=== PATIENT | female | born 1985 | race Caucasian/White ===

== ENCOUNTER 2023-10-28 10:05 | Emergency (ER) | payer OTHER, SELFPAY ==
--- NOTE | 2023-10-28 | ECG_ITS ---
Test Reason : PALPITATIONS / NAUSEA/VOMITTING Blood Pressure : / mmHG Vent. Rate : 072 BPM Atrial Rate : 072 BPM P-R Int : 132 ms QRS Dur : 080 ms QT Int : 474 ms P-R-T Axes : 078 083 056 degrees QTc Int : 519 ms Normal sinus rhythm with sinus arrhythmia Nonspecific ST abnormality Prolonged QT Abnormal ECG No previous ECGs available Referred By: Dejuan Osorio Electronically Signed By:Shankar Tinsley
--- NOTE | 2023-10-28 | ECG_ITS ---
Test Reason : QT CHECK Blood Pressure : / mmHG Vent. Rate : 066 BPM Atrial Rate : 066 BPM P-R Int : 142 ms QRS Dur : 078 ms QT Int : 410 ms P-R-T Axes : 071 075 028 degrees QTc Int : 429 ms Normal sinus rhythm Nonspecific ST-T changes Abnormal ECG When compared with ECG of 28-OCT-2023 16:29, No significant change was found Referred By: Dejuan Osorio Electronically Signed By:Shankar Tinsley
[2023-10-28 10:20] VITALS: BP 139/88; PULSE 87; RESP 20; TEMP 37.2; O2SAT 100; BMI 25.0
--- NOTE | 2023-10-28 10:35 | ED.NAVMDI ---
HPI - Nausea/Vomiting/Diarrhea General Chief complaint: Nausea/Vomiting/Diarrhea Stated complaint: Vomiting Time Seen by Provider: 10/28/23 10:31 Source: patient Mode of arrival: ambulatory Limitations: no limitations History of Present Illness HPI Narrative: Patient is a 37-year-old female who presents emergency department for evaluation of 3 days of nausea and vomiting. She admits to a history of cyclical vomiting that responds typically to IV Zofran. She denies fevers, chills, abdominal pain, chest pain, shortness of breath, genitourinary symptoms, constipation, diarrhea. She states that she has not smoked marijuana approximately 1 week. She is unable to tolerate any oral intake. Last night she began developing heart palpitations, she states in the past she has had low potassium with episodes of vomiting that requires replacement and typically resolves her palpitations Related Data Previous Rx's ?Medication ?Instructions ?Recorded ondansetron 4 mg disintegrating 4 mg PO Q8H PRN nausea and 10/28/23 tablet vomiting #20 tabs Allergies Allergy/AdvReac Type Severity Reaction Status Date / Time No Known Allergies Allergy Verified 10/28/23 10:24 Review of Systems Review of Systems: Yes all other systems are reviewed and are negative PMFSH Past Medical History Attestation statement: The following information was validated with the patient. Source: old records reviewed Social History Social History Alcohol intake: never Smoked in Last 30 Days: Yes Use of substances other than those prescribed or required for medical reasons: No Advance Directives: No Advance Directives Information Provided: Yes Do you have a plan to hurt others: No Plan Physical Exam Vital Signs: Vital Signs: Last Vital Signs Temp 98.9 F 10/28/23 10:20 Pulse 69 10/28/23 13:34 Resp 14 10/28/23 18:33 BP 114/67 10/28/23 13:34 Pulse Ox 98 10/28/23 13:34 O2 Del Method Room Air 10/28/23 13:34 BMI result Body Mass Index 25.0 Appearance: Alert.?Oriented to person, place and time. No acute distress.?Normal affect. Eyes: Pupils equal, round and reactive to light.? ENT: Pharynx normal.?? Neck: Normal inspection.? Neck supple.?? CVS: Heart sounds normal. Normal heart rate and rhythm.? Pulses normal.?? Respiratory: No respiratory distress.? Lung sounds clear to auscultation bilaterally?? Abdomen: Soft and non-tender. Normoactive bowel sounds. Skin: Skin warm and dry.? Normal skin color.? Extremities: No lower extremity edema.? No calf ttp? Neuro: Moves all extremities spontaneously. Sensation intact bilaterally. Ambulates with normal steady gait. Course Reevaluation(s) Reevaluation #1: Nursing staff had difficult time obtaining IV access, once PRN angio was placed they were unable to obtain serum labs. She was amenable to receiving medication IV fluids. Phlebotomy was called for assistance with serum labs which she has since refused. Time: 12:00 Reevaluation #2: Nursing staff was able to get patient to allow labs to be drawn. Received call from lab for critical potassium of 2.8, patient received potassium chloride 20 mEq IV, 40 mEq p.o. Time: 13:48 Reevaluation #3: Patient signed out to my colleague Lenoel GREENBERG pending repeat serum potassium and repeat EKG to evaluate QTC. Nausea and vomiting had resolved after receiving IV lorazepam and fluids. Anticipate that she may be discharged home a potassium an EKG normalizes. Additional Reevaluation(s): Patient's repeat EKG shows a QTC of 429. The patient is not actively vomiting but still reports nausea. She is requesting additional medication. She is unwilling to attempt haloperidol for cyclic vomiting. She is requesting Ativan. I will give her 1 additional dose of Ativan Medications Administered Discontinued Medications Generic Name Dose Route Start Last Admin Trade Name Freq PRN Reason Stop Dose Admin Sodium Chloride 1,000 mls @ 999 mls/hr 10/28/23 11:00 10/28/23 12:40 Ns IV 10/28/23 12:00 Infused .Q1H1M KARINA Infusion Magnesium Sulfate 2 gm in 50 mls @ 25 mls/hr 10/28/23 10:48 10/28/23 13:56 Magnesium Sulfate/H2o IV 10/28/23 12:47 Infused ONCE ONE Infusion Potassium Chloride 10 meq in 100 mls @ 100 mls/hr 10/28/23 13:45 10/28/23 16:20 Potassium Chloride/H20 IV 10/28/23 15:44 Infused Q1H KARINA Infusion Sodium Chloride 1,000 mls @ 999 mls/hr 10/28/23 13:45 10/28/23 15:30 Ns IV 10/28/23 14:45 Infused .Q1H1M KARINA Infusion Lorazepam 1 mg 10/28/23 13:45 10/28/23 14:10 Lorazepam 2 Mg/Ml Vial IVPUSH 10/28/23 13:46 1 mg ONCE ONE Administration Lorazepam 1 mg 10/28/23 20:35 10/28/23 20:50 Lorazepam 2 Mg/Ml Vial IVPUSH 10/28/23 20:36 1 mg STAT STA Administration Ondansetron HCl 4 mg 10/28/23 10:48 10/28/23 11:56 Ondansetron Hcl 4 Mg/2 Ml Vial IVPUSH 10/28/23 10:49 4 mg ONCE ONE Administration Potassium Chloride 40 meq 10/28/23 13:45 10/28/23 14:10 Potassium Chloride Packet 20 Meq Packet PO 10/28/23 13:46 40 meq ONCE ONE Administration Medical Decision Making Medical Decision Making [facility] Narrative: Patient is a 37-year-old female with past medical history of cyclical dominant who presents to the emergency department for evaluation of 3 days' nausea and vomiting, admits that she is not smoke marijuana over the past week. She denies associated fevers, chills, chest pain, shortness of breath, URI symptoms, abdominal pain, urogenital symptoms, back pain. Denies any known sick contacts. She reports that Zofran is typically helpful for this. On review, EKG reveals a sinus rhythm with arrhythmia, ventricular rate of 72, prolonged QT 519 MS, T-wave inversion inferior leads. no prior available for review. Will obtain CBC to evaluate for leukocytosis/ anemia, CMP and lipase to evaluate for abnormal electrolytes /abnormal renal function/ abnormal hepatic/biliary function, hCG and Urinalysis. Patient received 1 L normal saline IV fluid, magnesium 2 g V with Zofran 4 mg IV given prolonged QTc Differential Diagnosis Differential Diagnoses: The differential diagnosis associated with the presentation includes (Gastroenteritis, cyclic vomiting, , prolonged QT) Admission/Observation Consideration of admission/observation: Escalation of care including admission/observation considered Lab Data [facility] Lab Attestation statement: I reviewed the patient's lab results. 10/28/23 13:05 10/28/23 18:02 Labs: Lab Results 10/28/23 10/28/23 10/28/23 Range/Units 13:05 13:05 18:02 WBC 12.8 H (4.8-10.8) X10*3/uL RBC 5.58 H (4.20-5.50) X10*6/uL Hgb 16.0 (12.0-16.0) g/dl Hct 47.2 H (37.0-47.0) % MCV 84.6 (80.0-98.0) fL MCH 28.7 (27.0-33.0) pg MCHC 33.9 (31.0-35.0) g/dl RDW 11.7 (11.0-16.0) % Plt Count 215 (160-400) X10*3/uL MPV 11.1 (9.4-12.3) fL Immature Gran % (Auto) 0.4 (0.0-0.4) % Neut % (Auto) 83.0 H (45-73) % Lymph % (Auto) 10.9 L (20-40) % [place] % (Auto) 5.5 (2-11) % Eos % (Auto) 0.0 (0-4) % Baso % (Auto) 0.2 (0-2) % Lymph # (Auto) 1.4 (1.2-4.9) X10*3/uL [place] # (Auto) 0.7 (0.1-1.2) X10*3/uL Eos # (Auto) 0.0 (0.0-0.4) X10*3/uL Baso # (Auto) 0.0 (0.0-0.2) X10*3/uL Abs Immat Gran (auto) 0.05 H (0.00-0.03) X10*3/uL Absolute Neuts (auto) 10.6 H (2.0-8.3) x10*3/uL Absolute Nucleated RBC 0.000 (0.0-0.012) X10*3/uL Nucleated RBC % (auto) 0.0 (0.0-0.2) /100WBC Sodium 139 (135-145) mmol/L Potassium 2.8 L* 4.0 D (3.3-5.1) mmol/L Chloride 98 (96-108) mmol/L Carbon Dioxide 25 (22-29) mmol/L Anion Gap 19 (12-20) BUN 9 (9-16) mg/dL Creatinine 0.89 (0.5-1.4) mg/dL Estim Creat Clear Calc 77.9 Estimated GFR > 60 Random Glucose 109 (60-115) mg/dL Calcium 10.6 H (8.4-10.2) mg/dL Magnesium 2.9 H Cancelled (1.6-2.6) mg/dL Total Bilirubin 1.1 H (0.0-1.0) mg/dL AST 23 (5-31) U/L ALT 17 (0-31) U/L Alkaline Phosphatase 52 (39-117) U/L Troponin I High Sens < 2.7 (<3.5-17.0) ng/L Total Protein 9.2 H (6.5-8.0) g/dL Albumin 5.5 H (3.5-5.0) g/dL Lipase 22 (8-78) U/L Beta HCG, Quant < 2 mIU/mL Ethyl Alcohol < 10 mg/dL Independent Historian Clinical information obtained from an independent historian. History obtained from or confirmed by: Spouse Critical Care Time Critical Care Time Critical Care Time: Yes Total Critical Care Time: 35 Attestation: I personally attest to this critical care time spent taking care of the patient exclusive of all other billable procedures was approximately 35 minutes including initial evaluation of patient, ordering tests, IV potassium for acute hypokalemia, EKG interpretation, medical consultation, documentation, re-evaluation. Discharge Plan Discharge Clinical Impression: Cyclical vomiting, Acute hypokalemia, Prolonged QT interval Patient Disposition: Home, Self-Care Instructions: Acute Nausea and Vomiting (ED) Additional Instructions: Take Zofran as needed for nausea/vomiting. Avoid marijuana consumption in the future. Your potassium was initially low but was repleted. You should follow-up your doctor next week for repeat labs Prescriptions: New ondansetron 4 mg tablet,disintegrating 4 mg PO Q8H PRN (Reason: nausea and vomiting) Qty: 20 0RF Print Language: Surinamese
[2023-10-28] MEDS: 0.9 % Sodium Chloride 1,000 ML 999 ML IV ×2 (11:36→14:10)
[2023-10-28] MEDS: Magnesium Sulfate/H2O 2 GM/50 ML PIGGYBACK IV (11:56)
[2023-10-28] MEDS: ondansetron HCL 4 MG/2 ML VIAL IVPUSH (11:56)
--- NOTE | 2023-10-28 11:57 | PC.NURSE ---
PIV #20 IN R FOOT, PATENT WITH NO BLOOD RETURN, UNABLE TO OBTAIN LABS. IVF RUNNING, MEDICATED PER EMR. PLACED ON BIOMEDICAL REPAIR TECHNICIAN, NSR.
--- NOTE | 2023-10-28 12:02 | PC.NURSE ---
this nurse took over care for patient from yonas at 11am, pt a&o, panel monitor intact, pt difficult stick and previously has had US guided IVs placed-provider aware, evans Lee is US trained and was able to obtain access in the pts rt foot US guided. Unable to obtain labs from this site, phlebotomy was called to attempt labs. pt was medicated by evans wilcox and IVF hung per order, pt aware she needs a UA as does the tech, will continue to monitor
--- NOTE | 2023-10-28 12:09 | PC.NURSE ---
phlebotomy came to the floor to attempt lab draw and pt refusing to allow them to draw, provider was notified of this.
--- NOTE | 2023-10-28 13:03 | PC.NURSE ---
pt & ox3, still complaining of nausea, denies pain, will notify provider, call puentes within reach, will continue to monitor
[2023-10-28 13:10] LABS: MANUAL DIFF FLAG NO
[2023-10-28 13:16] LABS: Basophils Percent Auto 0.2 % (0-2); Hematocrit 47.2 % (37.0-47.0); Imm Gran Abs Auto 0.05 X10*3/uL (0.00-0.03); Imm Gran Pct Auto 0.4 % (0.0-0.4); Lymphocytes Absolute Auto 1.4 X10*3/uL (1.2-4.9); Lymphocytes Percent Auto 10.9 % (20-40); Mean Corpuscular HGB Conc 33.9 g/dl (31.0-35.0); Mean Corpuscular Hemoglobin 28.7 pg (27.0-33.0); Mean Corpuscular Volume 84.6 fL (80.0-98.0); Mean Platelet Volume 11.1 fL (9.4-12.3); Monocytes Absolute Auto 0.7 X10*3/uL (0.1-1.2); Monocytes Percent Auto 5.5 % (2-11); Neutrophils Absolute Auto 10.6 x10*3/uL (2.0-8.3); Platelet Count 215 X10*3/uL (160-400); Red Blood Count 5.58 X10*6/uL (4.20-5.50); Red Cell Distribution Width 11.7 % (11.0-16.0); White Blood Count 12.8 X10*3/uL (4.8-10.8)
--- NOTE | 2023-10-28 13:16 | PC.NURSE ---
phlebotomy came back to see patient again, this time pt was agreeable to have labs drawn, provider also notified of ongoing nausea
[2023-10-28 13:34] VITALS: BP 114/67; PULSE 69; RESP 14; O2SAT 98
[2023-10-28 13:35] LABS: Ethanol < 10 mg/dL; Lipase 22 U/L (8-78)
[2023-10-28 13:44] LABS: HCG Quantitative < 2 mIU/mL; Troponin-I High Sensitivity < 2.7 ng/L (<3.5-17.0)
[2023-10-28 13:45] LABS: Alanine Aminotransferase 17 U/L (0-31); Albumin Level 5.5 g/dL (3.5-5.0); Alkaline Phosphatase 52 U/L (39-117); Anion Gap 19 (12-20); Aspartate Amino Transferase 23 U/L (5-31); Bilirubin Total 1.1 mg/dL (0.0-1.0); Blood Urea Nitrogen 9 mg/dL (9-16); Calcium 10.6 mg/dL (8.4-10.2); Carbon Dioxide 25 mmol/L (22-29); Chloride 98 mmol/L (96-108); Creatinine Clr Calc Pharmacy 77.9; Estimated Glomerular Filt Rate > 60; Glucose Random 109 mg/dL (60-115); Magnesium 2.9 mg/dL (1.6-2.6); Potassium 2.8 mmol/L (3.3-5.1); Sodium 139 mmol/L (135-145); Total Protein 9.2 g/dL (6.5-8.0)
[2023-10-28] MEDS: Potassium Chloride Packet 20 MEQ PACKET 40 MEQ PO (14:10)
[2023-10-28] MEDS: LORazepam 2 MG/ML VIAL 1 MG IVPUSH ×2 (14:10→20:50)
[2023-10-28] MEDS: Potassium Chloride/H20 10 MEQ/100 ML PIGGYBACK 100 MEQ IV ×2 (14:11→15:16)
--- NOTE | 2023-10-28 14:15 | PC.NURSE ---
pt medicated per orders
--- NOTE | 2023-10-28 16:10 | ECG_ITS ---
Test Reason : PROLONGED QT Blood Pressure : / mmHG Vent. Rate : 069 BPM Atrial Rate : 069 BPM P-R Int : 132 ms QRS Dur : 084 ms QT Int : 418 ms P-R-T Axes : 051 078 015 degrees QTc Int : 447 ms Normal sinus rhythm with sinus arrhythmia Nonspecific ST-T changes Abnormal ECG When compared to the previous EKG of QT has shortened Referred By: Francisca Price Electronically Signed By:Shankar Tinsley
[2023-10-28 18:33] VITALS: RESP 14
[2023-10-28 22:29] VITALS: BP 124/68; PULSE 71; RESP 13; O2SAT 98
[2023-10-29 00:34] VITALS: BP 139/82; PULSE 69; RESP 16; TEMP 36.7
== END 2023-10-29 01:00 | disposition home or self-care (01) ==
PROVIDERS: Nurse Practitioner Family; Emergency Provider Emergency Medicine
DX: R11.2 Nausea with vomiting, unspecified (principal); E87.6 Hypokalemia; R94.31 Abnormal electrocardiogram [ECG] [EKG]; R10.2 Pelvic and perineal pain; M54.2 Cervicalgia; I49.8 Other specified cardiac arrhythmias; M54.16 Radiculopathy, lumbar region; Z79.899 Other long term (current) drug therapy
CPT/HCPCS: 36415; 80053; 80307; 83690; 83735; 84132; 84484; 84702; 85025; 93005; 96360; 96361; 96374; 96375; 96376; 99285; J2060; J2405; J3475; J3480

== ENCOUNTER → 2023-10-28 20:18 | Outpatient (BNV) | payer OTHER, SELFPAY | PROVIDERS: Emergency Provider Emergency Medicine; Visit Provider Internal Medicine Cardiovascular Disease | DX: R94.31 Abnormal electrocardiogram [ECG] [EKG] (principal) | CPT/HCPCS: 93010 ==

== ENCOUNTER 2023-10-29 10:01 | Inpatient (IN) | payer OTHER, SELFPAY ==
--- NOTE | 2023-10-29 10:12 | ECG_ITS ---
Test Reason : palpatations Blood Pressure : / mmHG Vent. Rate : 078 BPM Atrial Rate : 078 BPM P-R Int : 142 ms QRS Dur : 076 ms QT Int : 376 ms P-R-T Axes : 074 078 034 degrees QTc Int : 428 ms Normal sinus rhythm with sinus arrhythmia Nonspecific ST changes Abnormal ECG When compared with ECG of 28-OCT-2023 20:18, No significant change was found Referred By: Generic ED Physician Electronically Signed By:Shankar Tinsley
[2023-10-29 11:10] VITALS: BP 137/85; PULSE 92; RESP 16; TEMP 37.2; O2SAT 99; BMI 24.2
--- NOTE | 2023-10-29 11:16 | ED.NAVMDI ---
HPI - Nausea/Vomiting/Diarrhea General Chief complaint: Nausea/Vomiting/Diarrhea Stated complaint: Nausea Vomiting Time Seen by Provider: 10/29/23 14:36 Source: patient Mode of arrival: ambulatory Limitations: no limitations History of Present Illness ED Provider: DR. Odonnell HPI Narrative: 37-year-old female with history of cyclic vomiting syndrome presented with 3 days of nausea and vomiting, patient presented to the ED for same symptoms felt slightly improved after treatment in the emergency department come back today for worsening of her symptoms today. Patient admit to smoking marijuana occasionally, no alcohol abuse, no other recreational drug abuse. No sick contacts, no recent travel, no no recent use of antibiotic. Last bowel movement was this morning and passing flatus. Declined any history of intra-abdominal surgery. Related Data Previous Rx's ?Medication ?Instructions ?Recorded ondansetron 4 mg disintegrating 4 mg PO Q8H PRN nausea and 10/28/23 tablet vomiting #20 tabs Allergies Allergy/AdvReac Type Severity Reaction Status Date / Time No Known Allergies Allergy Verified 10/29/23 11:13 Review of Systems Review of Systems: All other systems are reviewed and are negative Constitutional: Reports as per HPI and Reports no additional constitutional complaints Eyes: Reports as per HPI and Reports no additional eye complaints Reports system reviewed and no additional complaints, except as documented Cardiovascular: Reports as per HPI and Reports no additional cardiovascular complaints Respiratory: Reports as per HPI and Reports no additional respiratory complaints Gastrointestinal: Reports as per HPI and Reports no additional gastrointestinal complaints Genitourinary: Reports no additional female genitourinary complaints Musculoskeletal: Reports no additional musculoskeletal complaints Skin/Breast: Reports system reviewed and no additional complaints, except as docu Psychiatric: Reports no additional psychiatric complaints Endocrine: Reports no additional endocrine complaints Hematologic/Lymphatic: Reports no additional hematologic/lymphatic complaints Allergic/Immunologic: Reports no additional allergic/immunologic complaints Reports system reviewed and no additional complaints, except as documented and Reports Abnormal speech present [facility] Past Medical History Medical History Cyclical vomiting Social History Social History Alcohol intake: never Smoked in Last 30 Days: No Use of substances other than those prescribed or required for medical reasons: No Advance Directives: No Do you have a plan to hurt others: No Plan Physical Exam Vital Signs: Vital Signs: Last Vital Signs Temp 98.9 F 10/29/23 11:10 Pulse 72 10/29/23 16:00 Resp 13 10/29/23 16:00 BP 128/82 10/29/23 16:00 Pulse Ox 99 10/29/23 16:00 O2 Del Method Room Air 10/29/23 16:00 BMI result Body Mass Index 24.2 Vital signs have been reviewed and appear to be correct. Blood pressure elevated. Heart rate normal. Respiratory rate normal. Temperature normal. Oxygen saturation normal. Appearance: Alert. Oriented X3. No acute distress. Head: Normal external exam. Normocephalic. Atraumatic. No Hayden signs noted. No raccoon eyes noted Eyes: PERRLA. EOMI. Conjunctiva and sclera normal. Eyelids normal. ENT: TM's Normal. Pharynx normal. Uvula midline. Moist mucous membranes. No trismus noted. No drooling noted. No muffled voice noted. Neck: Normal inspection. Neck supple. FROM. No adenopathy. Thyroid Normal. No meningeal signs. No neck mass noted. CVS: Normal heart rate and rhythm. Heart sound normal. No murmurs noted. Pulses normal throughout. Respiratory: No respiratory distress. Painless inspiration. Breath sounds normal. No wheezes/rales/rhonchi noted. Chest nontender. No accessory muscle usage noted or decreased air movement noted. Abdomen: Soft and nontender. Bowel sounds normal in all 4 quadrants. No distention noted. No organomegaly noted. No visible injury noted. Back: No CVA tenderness. Full range of motion noted. Skin: Skin warm and dry. Normal skin color. Normal skin turgor. No rashes/lesions/lacerations noted. Extremities: No lower extremity edema. Extremities exhibit normal range of motion. Extremities nontender. Neuro: Oriented X 3. Cranial nerve exam: II-XII are grossly intact No motor deficit. No sensory deficit. Reflexes normal. Course Course Course Narrative: This is an RME: Additional HPI, ROS, PE not included below will be deferred to primary provider. RME assessment and note performed by: Swetha Foster PA-C This is a [id number]-female, with a history of cyclical vomiting, who presents emergency department with complaints of ongoing nausea and vomiting. Patient was seen here yesterday where she had low potassium which was replenished, and was discharged on Zofran. He has not taken any of the Zofran at home. She denies any abdominal pain. Vital signs stable. Further ER evaluation needed. Reevaluation(s) Reevaluation #1: 37-year-old female 2nd visit to the ED today for persistent vomiting and hypokalemia, can not take any oral intake due to nausea and vomiting, abdominal exam is unremarkable radiographic study felt to be not needed in this case. Admit for IV hydration. Time: 16:40 Medications Administered Discontinued Medications Generic Name Dose Route Start Last Admin Trade Name Freq PRN Reason Stop Dose Admin Al Hydroxide/Mg Hydroxide 30 ml 10/29/23 15:27 10/29/23 15:39 Magnesium Hydrox/Alum Hydrox 30 Ml Oral.Susp PO 10/29/23 15:28 30 ml ONCE ONE Administration Famotidine 20 mg 10/29/23 15:27 10/29/23 15:39 Famotidine/Pf 20 Mg/2 Ml Vial IVPUSH 10/29/23 15:28 20 mg ONCE ONE Administration Sodium Chloride 1,000 mls @ 999 mls/hr 10/29/23 15:27 10/29/23 15:39 Ns IV 10/29/23 16:27 999 mls/hr .Q1H1M ONE Administration Potassium Chloride 10 meq in 100 mls @ 100 mls/hr 10/29/23 15:27 10/29/23 15:39 Potassium Chloride/H20 IV 10/29/23 16:26 100 mls/hr ONCE ONE Administration Lorazepam 1 mg 10/29/23 15:27 10/29/23 15:38 Lorazepam 2 Mg/Ml Vial IVPUSH 10/29/23 15:28 1 mg ONCE ONE Administration Ondansetron HCl 4 mg 10/29/23 15:27 10/29/23 15:38 Ondansetron Hcl 4 Mg/2 Ml Vial IVPUSH 10/29/23 15:28 4 mg ONCE ONE Administration Medical Decision Making Differential Diagnosis Differential Diagnoses: The differential diagnosis associated with the presentation includes ( Electrolyte derangement, severe anemia, dehydration, gastroenteritis, food poisoning, gastritis, intra-abdominal pathology.) Admission/Observation Consideration of admission/observation: Escalation of care including admission/observation considered Consult Healthcare Provider Management of the patient was discussed with: Hospitalist ( Dr. Matta) Lab Data MDM Lab Attestation statement: I reviewed the patient's lab results. 10/29/23 15:29 10/29/23 15:29 Labs: Lab Results 10/29/23 10/29/23 10/29/23 Range/Units 14:50 14:51 15:29 WBC 11.9 H (4.8-10.8) X10*3/uL RBC 5.21 (4.20-5.50) X10*6/uL Hgb 15.2 (12.0-16.0) g/dl Hct 43.5 (37.0-47.0) % MCV 83.5 (80.0-98.0) fL MCH 29.2 (27.0-33.0) pg MCHC 34.9 (31.0-35.0) g/dl RDW 11.5 (11.0-16.0) % Plt Count 305 D (160-400) X10*3/uL MPV 10.4 (9.4-12.3) fL Immature Gran % (Auto) 0.3 (0.0-0.4) % Neut % (Auto) 69.6 (45-73) % Lymph % (Auto) 22.7 (20-40) % [place] % (Auto) 6.7 (2-11) % Eos % (Auto) 0.2 (0-4) % Baso % (Auto) 0.5 (0-2) % Lymph # (Auto) 2.7 (1.2-4.9) X10*3/uL [place] # (Auto) 0.8 (0.1-1.2) X10*3/uL Eos # (Auto) 0.0 (0.0-0.4) X10*3/uL Baso # (Auto) 0.1 (0.0-0.2) X10*3/uL Abs Immat Gran (auto) 0.03 (0.00-0.03) X10*3/uL Absolute Neuts (auto) 8.3 (2.0-8.3) x10*3/uL Absolute Nucleated RBC 0.000 (0.0-0.012) X10*3/uL Nucleated RBC % (auto) 0.0 (0.0-0.2) /100WBC Sodium 139 (135-145) mmol/L Potassium 2.7 L* D (3.3-5.1) mmol/L Chloride 99 (96-108) mmol/L Carbon Dioxide 27 (22-29) mmol/L Anion Gap 16 (12-20) BUN 7 L (9-16) mg/dL Creatinine 0.94 (0.5-1.4) mg/dL Estim Creat Clear Calc 76.7 Estimated GFR > 60 Random Glucose 97 (60-115) mg/dL Calcium 10.4 H (8.4-10.2) mg/dL Magnesium 2.4 (1.6-2.6) mg/dL Lipase (8-78) U/L Beta HCG, Quant mIU/mL Urine Color Yellow Urine Appearance Clear Urine pH 7.0 (5.0-9.0) Ur Specific [place] 1.015 (1.005-1.025) Urine Protein Negative (Neg-Trace) mg/dL Urine Glucose (UA) Negative (Negative) mg/dL Urine Ketones Trace (Negative) mg/dL Urine Blood Negative (Negative) Urine Nitrite Negative (Negative) Ur Leukocyte Esterase Moderate (2+) H (Negative) Urine RBC 0-2 (0-2) /HPF Urine WBC 0-5 (0-5) /HPF Ur Squamous Epith Cells 3-5 (0-2) /HPF Urine Bacteria None Seen (None Seen) Hyaline Casts 0-2 (0-2) /LPF Urine Test NEGATIVE (NEGATIVE) Urine Opiates Screen Not Detected (Not Detect) Ur Buprenorphine Scrn Not Detected (Not Detect) ng/mL Ur Oxycodone Screen Not Detected (Not Detect) ng/mL Urine Methadone Screen Not Detected (Not Detect) ng/mL Urine Fentanyl Screen Not Detected (Not Detect) Ur Barbiturates Screen Not Detected (Not Detect) Ur Phencyclidine Scrn Not Detected (Not Detect) Ur Amphetamines Screen Not Detected (Not Detect) U Benzodiazepines Scrn Not Detected (Not Detect) Urine Cocaine Screen Not Detected (Not Detect) U Marijuana (THC) Screen POSITIVE H (Not Detect) Ethyl Alcohol mg/dL 10/29/23 Range/Units 15:30 WBC (4.8-10.8) X10*3/uL RBC (4.20-5.50) X10*6/uL Hgb (12.0-16.0) g/dl Hct (37.0-47.0) % MCV (80.0-98.0) fL MCH (27.0-33.0) pg MCHC (31.0-35.0) g/dl RDW (11.0-16.0) % Plt Count (160-400) X10*3/uL MPV (9.4-12.3) fL Immature Gran % (Auto) (0.0-0.4) % Neut % (Auto) (45-73) % Lymph % (Auto) (20-40) % [place] % (Auto) (2-11) % Eos % (Auto) (0-4) % Baso % (Auto) (0-2) % Lymph # (Auto) (1.2-4.9) X10*3/uL [place] # (Auto) (0.1-1.2) X10*3/uL Eos # (Auto) (0.0-0.4) X10*3/uL Baso # (Auto) (0.0-0.2) X10*3/uL Abs Immat Gran (auto) (0.00-0.03) X10*3/uL Absolute Neuts (auto) (2.0-8.3) x10*3/uL Absolute Nucleated RBC (0.0-0.012) X10*3/uL Nucleated RBC % (auto) (0.0-0.2) /100WBC Sodium (135-145) mmol/L Potassium (3.3-5.1) mmol/L Chloride (96-108) mmol/L Carbon Dioxide (22-29) mmol/L Anion Gap (12-20) BUN (9-16) mg/dL Creatinine (0.5-1.4) mg/dL Estim Creat Clear Calc Estimated GFR Random Glucose (60-115) mg/dL Calcium (8.4-10.2) mg/dL Magnesium (1.6-2.6) mg/dL Lipase 73 (8-78) U/L Beta HCG, Quant < 2 mIU/mL Urine Color Urine Appearance Urine pH (5.0-9.0) Ur Specific [place] (1.005-1.025) Urine Protein (Neg-Trace) mg/dL Urine Glucose (UA) (Negative) mg/dL Urine Ketones (Negative) mg/dL Urine Blood (Negative) Urine Nitrite (Negative) Ur Leukocyte Esterase (Negative) Urine RBC (0-2) /HPF Urine WBC (0-5) /HPF Ur Squamous Epith Cells (0-2) /HPF Urine Bacteria (None Seen) Hyaline Casts (0-2) /LPF Urine Test (NEGATIVE) Urine Opiates Screen (Not Detect) Ur Buprenorphine Scrn (Not Detect) ng/mL Ur Oxycodone Screen (Not Detect) ng/mL Urine Methadone Screen (Not Detect) ng/mL Urine Fentanyl Screen (Not Detect) Ur Barbiturates Screen (Not Detect) Ur Phencyclidine Scrn (Not Detect) Ur Amphetamines Screen (Not Detect) U Benzodiazepines Scrn (Not Detect) Urine Cocaine Screen (Not Detect) U Marijuana (THC) Screen (Not Detect) Ethyl Alcohol < 10 mg/dL Discharge Plan Discharge Clinical Impression: Cyclical vomiting, Acute hypokalemia Patient Disposition: Admitted As Inpatient
[2023-10-29 14:59] LABS: Appearance Urine Clear; Color Urine Yellow; Glucose Urine UA Negative (Negative); Leukocyte Esterase Urine Moderate (2+) (Negative); Nitrite Urine Negative (Negative); Specific Gravity - Urine 1.015 (1.005-1.025); UMIC TRIGGER UACC YES; Urine Blood Negative (Negative); Urine Ketones Trace mg/dL (Negative); Urine Protein Negative (Neg-Trace)
--- NOTE | 2023-10-29 14:59 | PC.NURSE ---
At bedside with provider Dr. Hall addressing patient's difficult veins, patient states that yesterday she had an IV in her foot, Dr. Hall requesting for RN to look w/ US before his attempt. hire car driver Bryce made aware.
[2023-10-29 15:01] LABS: UPreg QC Valid YES; Urine Pregnancy NEGATIVE (NEGATIVE)
[2023-10-29 15:13] LABS: Amphetamine Screen Urine Not Detected (Not Detect); Barbiturates, Urine Not Detected (Not Detect); Benzodiazepines Screen Urine Not Detected (Not Detect); Buprenorphine Scr Not Detected (Not Detect); Cannabinoid Screen Urine POSITIVE (Not Detect); Cocaine Screen Urine Not Detected (Not Detect); Fentanyl, urine Not Detected (Not Detect); Methadone Screen, Urine Not Detected (Not Detect); Opiate Screen Urine Not Detected (Not Detect); Oxycodone Screen Urine Not Detected (Not Detect); Phencyclidine Screen Urine Not Detected (Not Detect)
[2023-10-29 15:21] LABS: Bacteria Urine None Seen (None Seen); Hyaline Casts Urine 0-2 /LPF (0-2); RBC Urine 0-2 /HPF (0-2); WBC Urine 0-5 /HPF (0-5)
[2023-10-29 15:35] LABS: MANUAL DIFF FLAG NO
[2023-10-29] MEDS: LORazepam 2 MG/ML VIAL 1 MG IVPUSH (15:38)
[2023-10-29] MEDS: ondansetron HCL 4 MG/2 ML VIAL IVPUSH (15:38)
[2023-10-29 15:39] LABS: Basophils Absolute Auto 0.1 X10*3/uL (0.0-0.2); Basophils Percent Auto 0.5 % (0-2); Eosinophils Percent Auto 0.2 % (0-4); Hematocrit 43.5 % (37.0-47.0); Hemoglobin 15.2 g/dl (12.0-16.0); Imm Gran Abs Auto 0.03 X10*3/uL (0.00-0.03); Imm Gran Pct Auto 0.3 % (0.0-0.4); Lymphocytes Absolute Auto 2.7 X10*3/uL (1.2-4.9); Lymphocytes Percent Auto 22.7 % (20-40); Mean Corpuscular HGB Conc 34.9 g/dl (31.0-35.0); Mean Corpuscular Hemoglobin 29.2 pg (27.0-33.0); Mean Corpuscular Volume 83.5 fL (80.0-98.0); Mean Platelet Volume 10.4 fL (9.4-12.3); Monocytes Absolute Auto 0.8 X10*3/uL (0.1-1.2); Monocytes Percent Auto 6.7 % (2-11); Neutrophils Absolute Auto 8.3 x10*3/uL (2.0-8.3); Neutrophils Percent Auto 69.6 % (45-73); Platelet Count 305 X10*3/uL (160-400); Red Blood Count 5.21 X10*6/uL (4.20-5.50); Red Cell Distribution Width 11.5 % (11.0-16.0); White Blood Count 11.9 X10*3/uL (4.8-10.8)
[2023-10-29] MEDS: Magnesium Hydrox/Alum Hydrox 30 ML ORAL.SUSP PO (15:39)
[2023-10-29] MEDS: 0.9 % Sodium Chloride 1,000 ML 999 ML IV (15:39)
[2023-10-29] MEDS: Potassium Chloride/H20 10 MEQ/100 ML PIGGYBACK 100 MEQ IV ×2 (15:39→18:22)
[2023-10-29] MEDS: Famotidine/PF 20 MG/2 ML VIAL IVPUSH (15:39)
--- NOTE | 2023-10-29 15:49 | PC.NURSE ---
Provider placed 20 G R upper arm. Patient requesting K to be run at a loqwer rate d/t burning she felt yesterday. Patient requested Maalox to be left at bedside table for her to drink when she's feeling less nauseous.
[2023-10-29 15:57] LABS: Ethanol < 10 mg/dL
[2023-10-29 16:00] VITALS: BP 128/82; PULSE 72; RESP 13; O2SAT 99
[2023-10-29 16:02] LABS: Lipase 73 U/L (8-78)
[2023-10-29 16:12] LABS: HCG Quantitative < 2 mIU/mL
[2023-10-29 16:12] LABS: Anion Gap 16 (12-20); Blood Urea Nitrogen 7 mg/dL (9-16); Calcium 10.4 mg/dL (8.4-10.2); Carbon Dioxide 27 mmol/L (22-29); Chloride 99 mmol/L (96-108); Creatinine Clr Calc Pharmacy 76.7; Estimated Glomerular Filt Rate > 60; Glucose Random 97 mg/dL (60-115); Magnesium 2.4 mg/dL (1.6-2.6); Potassium 2.7 mmol/L (3.3-5.1); Sodium 139 mmol/L (135-145)
--- NOTE | 2023-10-29 17:21 | P.HPHOSP_ITS ---
History of Present Illness Date of Service: 10/29/23 Chief Complaint: Intractable nausea nad vomiting A 37 years old lady with PMH of cyclic vomiting syndrome presenting to the hospital with intractable vomiting and inability to tolerate PO for the last 3 days. The patient reports No chest pain, palpitations, SOB, fever, chills, diarrhea or urinary symptoms. she smokes Marijuana but denies any drugs or Alcohol abuse. In ED found to have low potassium level. started on IV replacement Admitted for further evaluation and treatment. Review of Systems 2 Review of Systems: No fever, chills or weakness No chest pain, palpitation No shortness of breath or coughing No abdominal pain,but reporting nausea or vomiting No urinary symptoms No any rash or wounds PMFSH Medical History Cyclical vomiting Social History Alcohol intake: never Smoked in Last 30 Days: No Use of substances other than those prescribed or required for medical reasons: No Advance Directives: No Do you have a plan to hurt others: No Plan Meds Allergies Allergy/AdvReac Type Severity Reaction Status Date / Time No Known Allergies Allergy Verified 10/29/23 11:13 Active Medications: Current Medications Potassium Chloride (Potassium Chloride/H20) 10 meq in 100 mls @ 100 mls/hr IV ONCE ONE Stop: 10/29/23 17:41 Physical Exam 2 Vital Signs and Narrative: Vital Signs: Last Vital Signs Temp 98.9 F 10/29/23 11:10 Pulse 72 10/29/23 16:00 Resp 13 10/29/23 16:00 BP 128/82 10/29/23 16:00 Pulse Ox 99 10/29/23 16:00 O2 Del Method Room Air 10/29/23 16:00 BMI result Body Mass Index 24.2 Const: Other: Constitutional : Awake, interactive, not in distress Neck : Normal inspection, Supple Cardiovascular : RRR, no JVP, no lower extremity edema Respiratory : good bilateral air entry, no crackles, wheezes or rhonchi Gastrointestinal: soft, lax, Normal bowel sounds, Non tender Skin : Warm, Dry Neurological : Alert & oriented x3, No focal deficit Results Labs 10/29/23 15:29 10/29/23 15:29 Labs: Laboratory Results - last 24 hr 10/29/23 10/29/23 10/29/23 14:50 14:51 15:29 MCV 83.5 MCH 29.2 MCHC 34.9 RDW 11.5 Plt Count 305 D MPV 10.4 Immature Gran % (Auto) 0.3 Neut % (Auto) 69.6 Lymph % (Auto) 22.7 [place] % (Auto) 6.7 Eos % (Auto) 0.2 Baso % (Auto) 0.5 Lymph # (Auto) 2.7 [place] # (Auto) 0.8 Eos # (Auto) 0.0 Baso # (Auto) 0.1 Abs Immat Gran (auto) 0.03 Absolute Neuts (auto) 8.3 Absolute Nucleated RBC 0.000 Nucleated RBC % (auto) 0.0 Anion Gap 16 Estim Creat Clear Calc 76.7 Estimated GFR > 60 Random Glucose 97 Calcium 10.4 H Magnesium 2.4 Lipase Beta HCG, Quant Urine Color Yellow Urine Appearance Clear Urine pH 7.0 Ur Specific [place] 1.015 Urine Protein Negative Urine Glucose (UA) Negative Urine Ketones Trace Urine Blood Negative Urine Nitrite Negative Ur Leukocyte Esterase Moderate (2+) H Urine RBC 0-2 Urine WBC 0-5 Ur Squamous Epith Cells 3-5 Urine Bacteria None Seen Hyaline Casts 0-2 Urine Test NEGATIVE Urine Opiates Screen Not Detected Ur Buprenorphine Scrn Not Detected Ur Oxycodone Screen Not Detected Urine Methadone Screen Not Detected Urine Fentanyl Screen Not Detected Ur Barbiturates Screen Not Detected Ur Phencyclidine Scrn Not Detected Ur Amphetamines Screen Not Detected U Benzodiazepines Scrn Not Detected Urine Cocaine Screen Not Detected U Marijuana (THC) Screen POSITIVE H Ethyl Alcohol 10/29/23 15:30 MCV MCH MCHC RDW Plt Count MPV Immature Gran % (Auto) Neut % (Auto) Lymph % (Auto) [place] % (Auto) Eos % (Auto) Baso % (Auto) Lymph # (Auto) [place] # (Auto) Eos # (Auto) Baso # (Auto) Abs Immat Gran (auto) Absolute Neuts (auto) Absolute Nucleated RBC Nucleated RBC % (auto) Anion Gap Estim Creat Clear Calc Estimated GFR Random Glucose Calcium Magnesium Lipase 73 Beta HCG, Quant < 2 Urine Color Urine Appearance Urine pH Ur Specific [place] Urine Protein Urine Glucose (UA) Urine Ketones Urine Blood Urine Nitrite Ur Leukocyte Esterase Urine RBC Urine WBC Ur Squamous Epith Cells Urine Bacteria Hyaline Casts Urine Test Urine Opiates Screen Ur Buprenorphine Scrn Ur Oxycodone Screen Urine Methadone Screen Urine Fentanyl Screen Ur Barbiturates Screen Ur Phencyclidine Scrn Ur Amphetamines Screen U Benzodiazepines Scrn Urine Cocaine Screen U Marijuana (THC) Screen Ethyl Alcohol < 10 Assessment and Plan (1) Cyclical vomiting: Status: Acute (2) Acute hypokalemia: Status: Acute (3) Hypercalcemia: Status: Acute Plan A 37 years old lady with PMH of cyclic vomiting syndrome presenting to the hospital with intractable vomiting and inability to tolerate PO for the last 3 days. Intractable vomiting 2/2 cyclic vomiting syndrome complicated with acute hypokalemia NPO IVF replacement give potassium replacement Zofran and Ativan PRN for nausea advance diet as tolerated advised to quit smoking marijuana Acute hypercalcemia 2/2 dehydration treat with IVF follow BMP DVT PPx Lovenox The patient will likely need 2 overnight hospital stay for treatment of hypokalemia and intractable vomiting pending resolution of electrolytes and diet tolerance Quality Stroke Does the patient have a stroke diagnosis?: No VTE Prior VTE?: No VTE Risk Level:: Medical - moderate - high VTE Device Contraindication: Treatment Not Indicated VTE Drug Contraindication: N/A - Med Ordered
[2023-10-29] MEDS: Enoxaparin Sodium 40 MG/0.4 ML SYRINGE SUBCUT (18:23)
--- NOTE | 2023-10-29 18:56 | PC.NURSE ---
Pharmacy/ICU/Storeroom unable to deliver fluids. house sup called to deliver fluids.
--- NOTE | 2023-10-29 19:02 | PHA.MEDREC ---
Pharmacy Consult ? Medication Reconciliation Pharmacy has completed the medication reconciliation. Confirmed medications with [facility] pharmacy and patient. [facility] confirmed she picked up a 30 day supply og the Ondansantron on 09/30 1 daily prn nausea, at their facility but patient also has another script for 1 tab Q8H prn nausea. I went and confirmed with the patient what she does and she said she is doing it as needed for nausea and vomiting.
[2023-10-29] MEDS: KCl 20 mEq in 5 % Dex/Lact Rin 20 MEQ/1,000 ML IV.SOLN 125 MEQ IVCONT (19:39)
[2023-10-29 22:29] VITALS: BMI 25.1
[2023-10-29 22:40] VITALS: BP 118/74; PULSE 54; RESP 20; TEMP 36.1; O2SAT 99
[2023-10-29] MEDS: LORazepam 2 MG/ML VIAL 0.5 MG IVPUSH (22:44)
[2023-10-30] MEDS: 0.9 % Sodium Chloride Flush 3 ML SYRINGE IVFLUSH (00:26)
[2023-10-30] MEDS: ondansetron HCL 4 MG/2 ML VIAL IVPUSH (00:27)
[2023-10-30] MEDS: KCl 20 mEq in 5 % Dex/Lact Rin 20 MEQ/1,000 ML IV.SOLN 125 MEQ IVCONT ×3 (03:37→20:51)
[2023-10-30 04:00] VITALS: BP 98/53; PULSE 55; RESP 16; TEMP 36.6; O2SAT 98
[2023-10-30 06:49] LABS: Hemoglobin 12.6 g/dl (12.0-16.0); Mean Corpuscular HGB Conc 34.1 g/dl (31.0-35.0); Mean Corpuscular Hemoglobin 29.1 pg (27.0-33.0); Mean Corpuscular Volume 85.5 fL (80.0-98.0); Mean Platelet Volume 10.6 fL (9.4-12.3); Platelet Count 230 X10*3/uL (160-400); Red Blood Count 4.33 X10*6/uL (4.20-5.50); Red Cell Distribution Width 11.4 % (11.0-16.0); White Blood Count 8.1 X10*3/uL (4.8-10.8)
[2023-10-30 07:02] LABS: Anion Gap 11 (12-20); Blood Urea Nitrogen 6 mg/dL (9-16); Calcium 8.9 mg/dL (8.4-10.2); Carbon Dioxide 25 mmol/L (22-29); Chloride 108 mmol/L (96-108); Estimated Glomerular Filt Rate > 60; Glucose Random 95 mg/dL (60-115); Potassium 3.2 mmol/L (3.3-5.1); Sodium 141 mmol/L (135-145)
[2023-10-30 07:36] VITALS: BP 106/68; PULSE 58; RESP 18; TEMP 36.1; O2SAT 98
[2023-10-30] MEDS: Potassium Chloride/H20 10 MEQ/100 ML PIGGYBACK 100 MEQ IV (08:07)
[2023-10-30] MEDS: Omeprazole 20 MG CAPSULE.DR PO (09:24)
--- NOTE | 2023-10-30 12:22 | MHC.CM.PN ---
LIVES IN A HOME W/ AND YOUNG CHILDREN. FUNCTIONALLY INDEPENDENT. DENIES USE OF DME OR SERVICES. PCP @ [facility] NO HCP. CM PROVIDED EDUCATION AND OFFERED ASSISTANCE. PATIENT DECLINED. DP: HOME SELF CARE, TO TRANSPORT. CM WILL CONTINUE TO FOLLOW.
--- NOTE | 2023-10-30 12:41 | HO.PM.IMPN ---
Subjective Subjective Date of Service: 10/30/23 Interval History: seen and evaluated this morning reporting mild nausea but no vomiting overnight remains NPO no other events Review of Systems Review of Systems: Yes all other systems are reviewed and are negative Physical Exam Vital Signs: Vital Signs: Last Vital Signs Temp 96.9 F 10/30/23 07:36 Pulse 58 10/30/23 07:36 Resp 18 10/30/23 07:36 BP 106/68 10/30/23 07:36 Pulse Ox 98 10/30/23 07:36 O2 Del Method Room Air 10/30/23 07:36 BMI result Body Mass Index 25.1 Const: Other: Constitutional : Awake, interactive, not in distress Neck : Normal inspection, Supple Cardiovascular : RRR, no JVP, no lower extremity edema Respiratory : good bilateral air entry, no crackles, wheezes or rhonchi Gastrointestinal: soft, lax, Normal bowel sounds, Non tender Skin : Warm, Dry Neurological : Alert & oriented x3, No focal deficit Objective Data Active Medications Acetaminophen (Acetaminophen 325 Mg Tablet) 650 mg PO Q6H PRN PRN Reason: Pain, Mild (Pain Scale 1-3), fever or headache Calcium Carbonate (Calcium Carbonate 750 Mg Tab.Chew) 750 mg PO Q4H PRN PRN Reason: Heartburn Enoxaparin Sodium (Enoxaparin Sodium 40 Mg/0.4 Ml Syringe) 40 mg SUBCUT Q24H [facility] Last Admin: 10/29/23 18:23 Dose: 40 mg Documented By: DITOLC Potassium Cl/Dextrose/Lact Ringer's (Kcl 20 Meq In 5 % Dex/Lact Rin) 20 meq in 1,000 mls @ 125 mls/hr IVCONT .Q8H [facility] Last Admin: 10/30/23 11:36 Dose: 125 mls/hr Documented By: DABA Lorazepam (Lorazepam 2 Mg/Ml Vial) 0.5 mg IVPUSH Q6H PRN PRN Reason: anxiety/restlessness Last Admin: 10/29/23 22:44 Dose: 0.5 mg Documented By: BRENNENQC Magnesium Hydroxide (Milk Of Magnesia 30 Ml Oral.Susp) 30 ml PO DAILY PRN PRN Reason: Constipation Melatonin (Melatonin 3 Mg Tablet) 6 mg PO BEDTIME PRN PRN Reason: Insomnia Omeprazole (Omeprazole 20 Mg Capsule.Dr) 20 mg PO DAILY@629 [facility] Last Admin: 10/30/23 09:24 Dose: 20 mg Documented By: CAROLA Ondansetron HCl (Ondansetron Hcl 4 Mg/2 Ml Vial) 4 mg IVPUSH Q8H PRN PRN Reason: Nausea and Vomiting Last Admin: 10/30/23 00:27 Dose: 4 mg Documented By: ISAEL Sodium Chloride (0.9 % Sodium Chloride Flush 3 Ml Syringe) 3 ml IVFLUSH QSHIFT [facility] Last Admin: 10/30/23 06:58 Dose: Not Given Documented By: CAROLA Non-Admin Reason: IV Running Labs 10/30/23 05:48 10/30/23 05:48 Labs: Laboratory Results - last 24 hr 10/29/23 10/29/23 10/29/23 14:50 14:51 15:29 MCV 83.5 MCH 29.2 MCHC 34.9 RDW 11.5 Plt Count 305 D MPV 10.4 Immature Gran % (Auto) 0.3 Neut % (Auto) 69.6 Lymph % (Auto) 22.7 [place] % (Auto) 6.7 Eos % (Auto) 0.2 Baso % (Auto) 0.5 Lymph # (Auto) 2.7 [place] # (Auto) 0.8 Eos # (Auto) 0.0 Baso # (Auto) 0.1 Abs Immat Gran (auto) 0.03 Absolute Neuts (auto) 8.3 Absolute Nucleated RBC 0.000 Nucleated RBC % (auto) 0.0 Anion Gap 16 Estim Creat Clear Calc 76.7 Estimated GFR > 60 Random Glucose 97 Calcium 10.4 H Magnesium 2.4 Lipase Beta HCG, Quant Urine Color Yellow Urine Appearance Clear Urine pH 7.0 Ur Specific [place] 1.015 Urine Protein Negative Urine Glucose (UA) Negative Urine Ketones Trace Urine Blood Negative Urine Nitrite Negative Ur Leukocyte Esterase Moderate (2+) H Urine RBC 0-2 Urine WBC 0-5 Ur Squamous Epith Cells 3-5 Urine Bacteria None Seen Hyaline Casts 0-2 Urine Test NEGATIVE Urine Opiates Screen Not Detected Ur Buprenorphine Scrn Not Detected Ur Oxycodone Screen Not Detected Urine Methadone Screen Not Detected Urine Fentanyl Screen Not Detected Ur Barbiturates Screen Not Detected Ur Phencyclidine Scrn Not Detected Ur Amphetamines Screen Not Detected U Benzodiazepines Scrn Not Detected Urine Cocaine Screen Not Detected U Marijuana (THC) Screen POSITIVE H Ethyl Alcohol 10/29/23 10/30/23 15:30 05:48 MCV 85.5 MCH 29.1 MCHC 34.1 RDW 11.4 Plt Count 230 MPV 10.6 Immature Gran % (Auto) Neut % (Auto) Lymph % (Auto) [place] % (Auto) Eos % (Auto) Baso % (Auto) Lymph # (Auto) [place] # (Auto) Eos # (Auto) Baso # (Auto) Abs Immat Gran (auto) Absolute Neuts (auto) Absolute Nucleated RBC 0.000 Nucleated RBC % (auto) 0.0 Anion Gap 11 L Estim Creat Clear Calc 89.0 Estimated GFR > 60 Random Glucose 95 Calcium 8.9 D Magnesium Lipase 73 Beta HCG, Quant < 2 Urine Color Urine Appearance Urine pH Ur Specific [place] Urine Protein Urine Glucose (UA) Urine Ketones Urine Blood Urine Nitrite Ur Leukocyte Esterase Urine RBC Urine WBC Ur Squamous Epith Cells Urine Bacteria Hyaline Casts Urine Test Urine Opiates Screen Ur Buprenorphine Scrn Ur Oxycodone Screen Urine Methadone Screen Urine Fentanyl Screen Ur Barbiturates Screen Ur Phencyclidine Scrn Ur Amphetamines Screen U Benzodiazepines Scrn Urine Cocaine Screen U Marijuana (THC) Screen Ethyl Alcohol < 10 Assessment and Plan (1) Hypercalcemia: Status: Acute (2) Cyclical vomiting: Status: Acute (3) Acute hypokalemia: Status: Acute Plan A 37 years old lady with PMH of cyclic vomiting syndrome presenting to the hospital with intractable vomiting and inability to tolerate PO for the last 3 days. Intractable vomiting 2/2 cyclic vomiting syndrome complicated with acute hypokalemia improving continue IVF give extra IV potassium replacement Zofran and Ativan PRN for nausea advance diet as tolerated; clears then regular advised to quit smoking marijuana GI evaluation per patient request for recurrent vomiting episodes and hx of pyloric stenosis Acute hypercalcemia 2/2 dehydration resolved DVT PPx Lovenox The patient will likely need overnight hospital stay for treatment of hypokalemia and intractable vomiting pending resolution of electrolytes and diet tolerance Quality Stroke Does the patient have a stroke diagnosis?: No VTE Prior VTE?: No VTE Risk Level:: Medical - moderate - high VTE Device Contraindication: Treatment Not Indicated VTE Drug Contraindication: N/A - Med Ordered
--- NOTE | 2023-10-30 13:25 | PM.EVENT ---
Event Note Date of Service: 10/30/23 Event Note: GI consult dictated Plan is for further evaluation of epigastric pain and vomiting with EGD 10/30. Sobia is aware of risks and benefits and agrees to proceed. Time Spent With Patient Time: Total time managing care of this patient today ____ minutes.
--- NOTE | 2023-10-30 13:28 | MHC.SHP ---
Pre-Procedural Eval Section A - 24 Hr Update-Section A only Date of Service: 10/30/23 The patient is an INPATIENT: Yes Changes since office visit: No Cold of Flu in the past 2 weeks, No New Medical Problems, No Changes in Medication and No Patient answered all questions The patient has been examined within 24 hours of the surgical procedure. The History & Physical has been completed within 30 days and I have reviewed it.: Yes Section B - Complete if H&P > 30 days Chief Complaint: Intractable vomiting Allergies: Allergies Allergy/AdvReac Type Severity Reaction Status Date / Time No Known Allergies Allergy Verified 10/29/23 11:13 Plan I have reviewed the history and physical and performed a pertinent physical examination on my patient. No changes have occurred unless specified. Time Spent With Patient Time: Total time managing care of this patient today ____ minutes.
--- NOTE | 2023-10-30 13:58 | CONS_ITS ---
DATE OF SERVICE: 10/30/2023 REFERRING PHYSICIAN: Dr. Matta REASON FOR CONSULTATION: Epigastric pain and vomiting. 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 She reports a long history of intermittent episodic vomiting and being diagnosed with cyclical vomiting syndrome to her primary care provider. Symptoms generally began with exacerbations with nausea, which progressed to recurrent vomiting and hospitalization. She was evaluated in the emergency department earlier in the week and was discharged home, but had recurrent symptoms and return to the emergency room and was admitted for inpatient care. Since admission, she has been treated with antiemetics and feels better and is starting clear liquids today. She does have a history of marijuana use, which she states is for nausea, but does not associate with her symptoms worsening. She denies alcohol use and does not use tobacco. She reports a history of pyloric stenosis as a child, but does not believe she had surgery for this. She denies other medical illnesses. PAST MEDICAL HISTORY: Cyclical vomiting. CURRENT MEDICATIONS: Her current medication list is reviewed in the chart. She has been on amitriptyline in the past. ALLERGIES: THERE ARE NONE REPORTED. FAMILY HISTORY: This is negative for upper GI tract malignancy. SOCIAL HISTORY: There is no current substance use except marijuana as above. REVIEW OF SYSTEMS: SKIN: No pruritus. HEENT: Negative. CARDIOPULMONARY: She denies shortness of breath or chest pain. GASTROINTESTINAL: As above. GENITOURINARY: Negative. NEUROPSYCHIATRIC: Negative. PAST SURGICAL HISTORY: Includes bilateral inguinal hernia repairs. PHYSICAL EXAMINATION: GENERAL: Shows a pleasant female, lying comfortably in bed. VITAL SIGNS: Reviewed in the electronic medical record and are stable. SKIN: Anicteric. HEENT: Shows no scleral icterus. NECK: Without lymphadenopathy or thyromegaly. LUNGS: Clear. HEART: Shows regular rate and rhythm. S1, S2. No murmur. ABDOMEN: Soft without focal masses or tenderness. Bowel sounds are present. No organomegaly is noted. EXTREMITIES: Without edema. LABORATORY DATA AND IMAGING STUDIES: Reviewed. IMPRESSION: Epigastric pain with nausea and vomiting. Her symptoms do appear consistent with cyclical vomiting syndrome. We did discuss the association with marijuana use and recommended she avoid this. I did discuss endoscopy with her to rule out other causes for her nausea and vomiting. She is aware of risks and benefits and agrees to proceed. We will arrange this for tomorrow pending her clinical course. Thanks for asking me to see her. I will follow her in the hospital with you. MD ANA Borja/BLAYNE / [id number] MTDD
[2023-10-30 15:22] VITALS: BP 104/58; PULSE 63; RESP 20; TEMP 36.5; O2SAT 99
[2023-10-30] MEDS: Enoxaparin Sodium 40 MG/0.4 ML SYRINGE SUBCUT (17:54)
[2023-10-30 19:12] VITALS: BP 95/52; PULSE 75; RESP 20; TEMP 36.7; O2SAT 98
[2023-10-31 03:25] VITALS: BP 92/55; PULSE 64; RESP 16; TEMP 36.1; O2SAT 98
[2023-10-31] MEDS: KCl 20 mEq in 5 % Dex/Lact Rin 20 MEQ/1,000 ML IV.SOLN 125 MEQ IVCONT ×2 (04:48→12:54)
[2023-10-31 07:44] VITALS: BP 100/59; PULSE 67; RESP 18; TEMP 36.6; O2SAT 98
[2023-10-31 09:58] LABS: Anion Gap 11 (12-20); Blood Urea Nitrogen 5 mg/dL (9-16); Calcium 8.8 mg/dL (8.4-10.2); Carbon Dioxide 27 mmol/L (22-29); Chloride 107 mmol/L (96-108); Creatinine Clr Calc Pharmacy 93.6; Estimated Glomerular Filt Rate > 60; Glucose Random 86 mg/dL (60-115); Potassium 4.2 mmol/L (3.3-5.1); Sodium 141 mmol/L (135-145)
--- NOTE | 2023-10-31 13:14 | MHC.CM.PN ---
Per MD rounds patient not medically cleared for dc at this time, potentially later today. No change to dc plan. CM will continue to follow.
--- NOTE | 2023-10-31 13:30 | PM.DS ---
DS: Providers Provider Date of Service: 10/31/23 Date of admission: 10/29/23 17:18 Date of discharge: 10/31/23 Primary care physician: Unknown Physician Consults: 10/30/23 09:01 Consult to Gastroenterology Routine Consulting Provider: Godfrey Sandhu Reason for consultation: infrequent episodes of vomiting DS: Diagnosis Discharge Diagnosis (1) Hypercalcemia: Status: Resolved (2) Cyclical vomiting: Status: Resolved (3) Acute hypokalemia: Status: Resolved DS: Summary Hospital Course Hospital Course: Admission note HPI A 37 years old lady with PMH of cyclic vomiting syndrome presenting to the hospital with intractable vomiting and inability to tolerate PO for the last 3 days. The patient reports No chest pain, palpitations, SOB, fever, chills, diarrhea or urinary symptoms. she smokes Marijuana but denies any drugs or Alcohol abuse. In ED found to have low potassium level. started on IV replacement Admitted for further evaluation and treatment. Hospital course the patient was admitted for treatment of Intractable vomiting likely secondary to cyclic vomiting syndrome complicated with acute hypokalemia. The potassium level corrected with IV and PO replacement. She was treated with IV fluids along with symptomatic measureas and Zofran and Ativan PRN for nausea. advanced diet as tolerated to regular with fair tolerance. She was advised to quit smoking marijuana. GI evaluated her for recurrent vomiting episodes and hx of pyloric stenosis and had an EGD done showing no abnormalities. Discharge plan Avoid smoking Marijuana Omeprazole daily Zofran as needed for nausea Time Attestation Discharge Coordination Time (in mins): 33 Quality: Safe Use of Opioids Does Pt have an Active Cancer Diagnosis on the Problem List?: No Quality: Stroke Does the patient have a stroke diagnosis?: No Physical Exam Vital Signs: Vital Signs: Last Vital Signs Temp 97.8 F 10/31/23 07:44 Pulse 67 10/31/23 07:44 Resp 18 10/31/23 07:44 BP 100/59 L 10/31/23 07:44 Pulse Ox 98 10/31/23 07:44 O2 Del Method Room Air 10/31/23 07:44 BMI result Body Mass Index 25.1 Const: Other: Constitutional : Awake, interactive, not in distress Neck : Normal inspection, Supple Cardiovascular : RRR, no JVP, no lower extremity edema Respiratory : good bilateral air entry, no crackles, wheezes or rhonchi Gastrointestinal: soft, lax, Normal bowel sounds, Non tender Skin : Warm, Dry Neurological : Alert & oriented x3, No focal deficit DS: Data Data Completed and Pending Labs on day of discharge: Laboratory Results - last 24 hr 10/31/23 09:21 Sodium 141 Potassium 4.2 D Chloride 107 Carbon Dioxide 27 Anion Gap 11 L BUN 5 L Creatinine 0.77 Estim Creat Clear Calc 93.6 Estimated GFR > 60 Random Glucose 86 Calcium 8.8 Discharge Plan Discharge Anticipated Discharge Date/Time: 10/31/23 13:25 Patient Disposition: Home, Self-Care Discharge Diagnosis: Cyclic vomiting Hypokalemia Referrals: Physician,Unknown J [Physician] - 1 Week Discharge Medications: New omeprazole 20 mg Capsule,Delayed Release(Dr/Ec) 20 mg PO DAILY@0630 Qty: 90 0RF Changed ondansetron 4 mg tablet,disintegrating 4 mg PO NEEDED PRN (Reason: nausea and vomiting) Qty: 20 0RF Discharge Orders: Discharge Order (Routine); Ordered 10/31/23 Ordered By: Karely Matta Activity on Discharge: As tolerated Stand Alone Forms: Patient Portal Discharge page Print Language: Belgian Care Plan Goals: Avoid smoking Marijuana Omeprazole daily Zofran as needed for nausea Health Concerns: Read below Plan of Treatment: Read below Assessment: Read below Discharge Date/Time: 10/31/23 18:30
[2023-10-31 14:59] VITALS: BP 109/61; PULSE 64; RESP 18; TEMP 36.6; O2SAT 100
--- NOTE | 2023-10-31 16:17 | HO.ANESPROP2 ---
HPI - Anesthesia Eval Consult details Narrative: for EGD. PMFSH Active Problems Active Problems: All Active Problems Hypercalcemia (Acute) Acute hypokalemia (Acute) Cyclical vomiting (Acute) Past Medical History Medical History (Updated 10/30/23 @ 14:08 by Sindy Kelley RN) Pyloric stenosis Cyclical vomiting Patient : No Family History Family history of problems with anesthesia: No Surgical History History of Problems with Anesthesia: No Social History Social History Household Members: Family Housing: House Do you presently have visiting nurse or other home services: No Alcohol intake: never Patient Tobacco Use Status: Never used Tobacco Substance Use Type: Marijuana service: No Meds Allergies Allergy/AdvReac Type Severity Reaction Status Date / Time No Known Allergies Allergy Verified 10/29/23 11:13 Active Medications: Current Medications Acetaminophen (Acetaminophen 325 Mg Tablet) 650 mg PO Q6H PRN PRN Reason: Pain, Mild (Pain Scale 1-3), fever or headache Calcium Carbonate (Calcium Carbonate 750 Mg Tab.Chew) 750 mg PO Q4H PRN PRN Reason: Heartburn Enoxaparin Sodium (Enoxaparin Sodium 40 Mg/0.4 Ml Syringe) 40 mg SUBCUT Q24H [facility] Last Admin: 10/30/23 17:54 Dose: 40 mg Potassium Cl/Dextrose/Lact Ringer's (Kcl 20 Meq In 5 % Dex/Lact Rin) 20 meq in 1,000 mls @ 125 mls/hr IVCONT .Q8H [facility] Last Admin: 10/31/23 12:54 Dose: 125 mls/hr Magnesium Hydroxide (Milk Of Magnesia 30 Ml Oral.Susp) 30 ml PO DAILY PRN PRN Reason: Constipation Melatonin (Melatonin 3 Mg Tablet) 6 mg PO BEDTIME PRN PRN Reason: Insomnia Omeprazole (Omeprazole 20 Mg Capsule.Dr) 20 mg PO DAILY@0630 [facility] Last Admin: 10/31/23 05:33 Dose: Not Given Ondansetron HCl (Ondansetron Hcl 4 Mg/2 Ml Vial) 4 mg IVPUSH Q8H PRN PRN Reason: Nausea and Vomiting Last Admin: 10/30/23 00:27 Dose: 4 mg Sodium Chloride (0.9 % Sodium Chloride Flush 3 Ml Syringe) 3 ml IVFLUSH QSHIFT [facility] Last Admin: 10/31/23 15:59 Dose: Not Given Home Medications ?Medication ?Instructions ?Recorded ?Confirmed ?Last Taken ?Type ondansetron 4 mg disintegrating 4 mg PO NEEDED PRN nausea and 10/29/23 10/29/23 10/28/23 History tablet vomiting Exam Height,Weight and Vital Signs: Height 5 ft 6 in Weight 70.5 kg Last Vital Signs Temp 97.8 F 10/31/23 14:59 Pulse 64 10/31/23 14:59 Resp 18 10/31/23 14:59 BP 109/61 10/31/23 14:59 Pulse Ox 100 10/31/23 14:59 O2 Del Method Room Air 10/31/23 14:59 Pertinent Lab Results Pertinent Lab Results: Laboratory Tests 10/29/23 10/29/23 10/29/23 14:50 14:51 15:29 WBC 11.9 H RBC 5.21 Hgb 15.2 Hct 43.5 MCV 83.5 MCH 29.2 MCHC 34.9 RDW 11.5 Plt Count 305 D MPV 10.4 Immature Gran % (Auto) 0.3 Neut % (Auto) 69.6 Lymph % (Auto) 22.7 [place] % (Auto) 6.7 Eos % (Auto) 0.2 Baso % (Auto) 0.5 Lymph # (Auto) 2.7 [place] # (Auto) 0.8 Eos # (Auto) 0.0 Baso # (Auto) 0.1 Abs Immat Gran (auto) 0.03 Absolute Neuts (auto) 8.3 Absolute Nucleated RBC 0.000 Nucleated RBC % (auto) 0.0 Sodium 139 Potassium 2.7 L* D Chloride 99 Carbon Dioxide 27 Anion Gap 16 BUN 7 L Creatinine 0.94 Estim Creat Clear Calc 76.7 Estimated GFR > 60 Random Glucose 97 Calcium 10.4 H Magnesium 2.4 Lipase Beta HCG, Quant Urine Color Yellow Urine Appearance Clear Urine pH 7.0 Ur Specific [place] 1.015 Urine Protein Negative Urine Glucose (UA) Negative Urine Ketones Trace Urine Blood Negative Urine Nitrite Negative Ur Leukocyte Esterase Moderate (2+) H Urine RBC 0-2 Urine WBC 0-5 Ur Squamous Epith Cells 3-5 Urine Bacteria None Seen Hyaline Casts 0-2 Urine Test NEGATIVE Urine Opiates Screen Not Detected Ur Buprenorphine Scrn Not Detected Ur Oxycodone Screen Not Detected Urine Methadone Screen Not Detected Urine Fentanyl Screen Not Detected Ur Barbiturates Screen Not Detected Ur Phencyclidine Scrn Not Detected Ur Amphetamines Screen Not Detected U Benzodiazepines Scrn Not Detected Urine Cocaine Screen Not Detected U Marijuana (THC) Screen POSITIVE H Ethyl Alcohol 10/29/23 10/30/23 10/31/23 15:30 05:48 09:21 WBC 8.1 RBC 4.33 Hgb 12.6 Hct 37.0 MCV 85.5 MCH 29.1 MCHC 34.1 RDW 11.4 Plt Count 230 MPV 10.6 Immature Gran % (Auto) Neut % (Auto) Lymph % (Auto) [place] % (Auto) Eos % (Auto) Baso % (Auto) Lymph # (Auto) [place] # (Auto) Eos # (Auto) Baso # (Auto) Abs Immat Gran (auto) Absolute Neuts (auto) Absolute Nucleated RBC 0.000 Nucleated RBC % (auto) 0.0 Sodium 141 141 Potassium 3.2 L 4.2 D Chloride 108 107 Carbon Dioxide 25 27 Anion Gap 11 L 11 L BUN 6 L 5 L Creatinine 0.81 0.77 Estim Creat Clear Calc 89.0 93.6 Estimated GFR > 60 > 60 Random Glucose 95 86 Calcium 8.9 D 8.8 Magnesium Lipase 73 Beta HCG, Quant < 2 Urine Color Urine Appearance Urine pH Ur Specific [place] Urine Protein Urine Glucose (UA) Urine Ketones Urine Blood Urine Nitrite Ur Leukocyte Esterase Urine RBC Urine WBC Ur Squamous Epith Cells Urine Bacteria Hyaline Casts Urine Test Urine Opiates Screen Ur Buprenorphine Scrn Ur Oxycodone Screen Urine Methadone Screen Urine Fentanyl Screen Ur Barbiturates Screen Ur Phencyclidine Scrn Ur Amphetamines Screen U Benzodiazepines Scrn Urine Cocaine Screen U Marijuana (THC) Screen Ethyl Alcohol < 10 Airway Mallampati Class: II TM Dist: >3cm Neck ROM: Full Loose/Missing/Broken Teeth: No Heart: ok Lungs: ok Assessment and Plan Assessment Anesthesia Assessment: Anesthesia Plan Discussed and Chart Reviewed Final Anesthetic Review Family History of Problems with Anesthesia: No History of Problems with Anesthesia: No NPO: Yes ASA Class: II Final Preanesthetic Review: No Changes in Pt Med Stat, Meds/Allgs Chart Reviewed, Consent Obtained/Reviewed and Anes Risks/Benef Reviewed Patient Risk: Low Procedure Risk: Intermediate Anesthetic Plan Anesthetic Plan: Agree w/ Assess. and Plan and TIVA Disposition: Standard PACU
--- NOTE | 2023-10-31 16:44 | P.BOP_ITS ---
Brief Operative Note Date of Service: 10/31/23 Pre-op diagnosis: recurrent vomiting Post-op diagnosis: same Procedure: EGD Surgeon: Godfrey Sandhu MD Was an Equipment Maint Tech used for this Procedure?: No Estimated blood loss (mL): 5 Pathology: none sent Condition: stable Disposition: PACU
--- NOTE | 2023-10-31 16:45 | PM.EVENT ---
Event Note Date of Service: 10/31/23 Event Note: EGD note dictated EGD looks normal biopsies obtained ok to d/c today f/u biopsies as an outpatient. Time Spent With Patient Time: Total time managing care of this patient today ____ minutes.
[2023-10-31 16:47] VITALS: BP 88/41; PULSE 70; RESP 16; TEMP 36.3; O2SAT 100
[2023-10-31 17:02] VITALS: BP 106/64; PULSE 56; RESP 18; TEMP 36.3; O2SAT 100
[2023-10-31 17:20] VITALS: BP 116/69; PULSE 53; RESP 18; TEMP 36.3; O2SAT 100
--- NOTE | 2023-11-01 03:22 | OP_ITS ---
DATE OF SERVICE: 10/31/2023 SURGEON: Godfrey Sandhu MD INDICATIONS: Recurrent vomiting. PREOPERATIVE DIAGNOSIS: POSTOPERATIVE DIAGNOSIS: PROCEDURE PERFORMED: Upper endoscopy with biopsy. ESTIMATED BLOOD LOSS: COMPLICATIONS: ANESTHESIA: Monitored anesthesia care. ASSISTANTS: SPECIMENS: PROCEDURE DESCRIPTION: History and physical were performed. The risks and benefits of the procedure were explained to the patient. An informed consent was obtained. The patient was placed in the left lateral decubitus position. The Olympus video gastroscope was introduced into the esophagus, stomach, and duodenum. Examination was performed. The scope was removed. She tolerated the procedure well and was taken to Recovery in stable condition. FINDINGS: Esophagus: The esophagus was normal. Biopsies were obtained to the EG junction. Stomach: The stomach showed no evidence of masses, ulcers, or polyps. Antral biopsies were obtained to evaluate for H pylori. Duodenum: The bulb and 2nd portion were normal. Second portion biopsies were obtained to evaluate for any evidence of celiac disease. IMPRESSION: Normal upper endoscopy. RECOMMENDATION: Follow up the biopsy results. MD ANA Borja/MODL / [id number]
== END 2023-10-31 18:30 | disposition home or self-care (01) | DRG 392 ==
LOC: HO.ED 16:39 → HO.EDOVER 17:27 → HO.S3 19:33
PROVIDERS: Internal Medicine Gastroenterology; Physician Assistant Medical; Admitting Provider Student in an Organized Health Care Education/Training Program; Emergency Provider Emergency Medicine; PCP Physician Assistant; Visit Provider Student in an Organized Health Care Education/Training Program
PROC: 0DJ08ZZ Inspection of Upper Intestinal Tract, Via Natural or Artificial Opening Endoscopic (ICD-10-PCS; CPT 43235; principal; 2023-10-31 15:00)
DX: R11.2 Nausea with vomiting, unspecified (principal); E87.6 Hypokalemia; E83.52 Hypercalcemia; E86.0 Dehydration; F12.90 Cannabis use, unspecified, uncomplicated
CPT/HCPCS: 36415; 80048; 80307; 81001; 81025; 83690; 83735; 84702; 85025; 85027; 88305; 88313; 88342; 93005; 99285; J1650; J2060; J2405; J2704; J3480

== ENCOUNTER → 2023-10-29 10:12 | Outpatient (BNV) | payer OTHER, SELFPAY | PROVIDERS: Visit Provider Internal Medicine Cardiovascular Disease | DX: R00.2 Palpitations (principal) | CPT/HCPCS: 93010 ==

== ENCOUNTER → 2023-10-29 17:18 | Outpatient (BNV) | payer OTHER, SELFPAY | PROVIDERS: Admitting Provider Student in an Organized Health Care Education/Training Program; Emergency Provider Emergency Medicine; Visit Provider Student in an Organized Health Care Education/Training Program | DX: R11.15 Cyclical vomiting syndrome unrelated to migraine (principal); E87.6 Hypokalemia; E83.52 Hypercalcemia | CPT/HCPCS: 99223; 99232; 99239 ==

== ENCOUNTER 2024-10-13 14:39 | Emergency (ER) | payer OTHER, SELFPAY ==
--- OUTSIDE RECORDS SUMMARY | 2023-10-31 10:50 | XMS_ITS ---
Author Organization [facility] Address [address] [place] [address] Care Team Providers [place] Program Technician Name Role Phone NONE, NONE Primary Care Provider Godfrey Bronson Jr Unavailable [phone] REASON FOR VISIT EPIGASTRIC PAIN, VOMITTING Encounters Encounter Location Date Provider Diagnosis [facility] Outpatient [address] [place] [address] [id number] 10/31/2023 Godfrey Sandhu Jr Plan Of Treatment No Information Progress Notes * JYOTI ELLISOB:[birth year] (38 yo F)Acc No.[id number]:10/31/2023 EGD/MAC Patient: HEMANT KINCAID Provider: Jonah Sandhu MD :1985 A ge:37 Y S ex:Female Date:10/31/2023 Address:[address] [place] [address] Subjective: * Chief Complaints: * 1 . EPIGASTRIC PAIN, VOMITTING. * Medical History: Objective: * Vitals: Assessment: Plan: * Treatment: * * The named appointment provid er may or may not be the originator of this progress note, and it is not deemed complete until electronically signed by the appointment provider. Sign off status: Pending * Provider: Jonah Sandhu MD Date: 10/31/2023 Generated for Zachi ck/Maryam/eTransmitting on: 10/13/2024 06:31 PM EDT
[2024-10-13 15:05] VITALS: BP 112/70; PULSE 97; RESP 16; TEMP 36.4; O2SAT 100; BMI 21.1
--- NOTE | 2024-10-13 15:06 | ED.NAVMDI ---
HPI - Nausea/Vomiting/Diarrhea General Chief complaint: Nausea/Vomiting/Diarrhea Stated complaint: vomiting Time Seen by Provider: 10/13/24 18:38 History of Present Illness ED Provider: Regan Funes MD HPI Narrative: 38-year-old female who provided initially limited history due to her clinical condition later arrived said she has stress induced cyclic vomiting syndrome but also is a daily marijuana smoker. Pretty abrupt onset of nausea vomiting abdominal discomfort. Denies fever. He has similar to previous presentations per the . Increased stress they are moving and packing at their home moving to [place] quite soon. Poor sleep poor eating over the past 48 hours. Related Data Previous Rx's ?Medication ?Instructions ?Recorded omeprazole 20 mg capsule,delayed 20 mg PO DAILY@0630 #90 caps 10/31/23 release ondansetron 4 mg disintegrating 4 mg PO NEEDED PRN nausea and 10/31/23 tablet vomiting #20 tabs Allergies Allergy/AdvReac Type Severity Reaction Status Date / Time No Known Allergies Allergy Verified 10/13/24 15:06 [facility] Past Medical History Medical History (Updated 10/14/24 @ 01:08 by Regan Funes MD) Pyloric stenosis Cyclical vomiting Social History Social History Household Members: Family Housing: House Do you presently have visiting nurse or other home services: No Alcohol intake: never Patient Tobacco Use Status: Never used Tobacco Smoked in Last 30 Days: No Use of substances other than those prescribed or required for medical reasons: Yes Substance Use Type: Marijuana Substance Use Frequency: Chronic Longstanding Advance Directives: No Advance Directives Information Provided: No Do you have a plan to hurt others: No Plan Patient : No service: No Physical Exam Vital Signs: Vital Signs: Last Vital Signs Temp 99.5 F 10/14/24 07:59 Pulse 86 10/14/24 07:59 Resp 17 10/14/24 07:59 BP 105/60 10/14/24 07:59 Pulse Ox 98 10/14/24 07:59 O2 Del Method Room Air 10/14/24 07:59 BMI result Body Mass Index 21.1 EXAM: Gen: Drowsy, distress from discomfort, intermittently retching. No pallor. Mildly diaphoretic clammy Head: Atraumatic Eyes: Anicteric, Normal conjunctiva. ENT: Moist mucosa, no pallor. ? Neck: Supple. Skin: ?No observable rash or bruising on exposed or examined skin Respiratory: Breathing comfortably, No distress.Clear to auscultation bilaterally, symmetric chest expansion, No wheeze, rales, ronchi. Cardiovascular: Regular rate and rhythm. No murmurs or rub. Well perfused periphery, warm extremities. No edema. ? Abdominal: No focal tenderness. Soft, no objective distension. No palpable masses or obvious organomegaly. ?No guarding, no rebound tenderness or other peritoneal findings. : No flank tenderness. Neuro: Alert. Gross movement of all extremities intact. ? Psych: Calm. Cooperative. MSK: No grossly visible deformity. Vital signs: See flowsheet Course Course Course Narrative: 10/13/24 1506 DIONICIO Fuentes This is a Rapid Medical Examination (RME) performed by Bernie Hall PA-C in triage. Full HPI, ROS, assessment and treatment plan per primary provider in the Main ED. Hx: 38 yo F hx of cyclical vomiting and hypokalemia here w/ N/V since yesterday. no other sx. no sick contacts. just finished her menstrual period. denies chance of preg. PE/vitals: actively vomiting. Plan: labs, preg, viral swabs. zofran given at 1507. Reevaluation(s) Reevaluation #1: Patient improving after droperidol. She is requesting discharge home. Using shared decision making, plan for discharge home to follow-up with primary care and/or specialist. Patient understands and agrees with plan for discharge. Discharged home in stable condition. Time: 07:57 Medications Administered Discontinued Medications Generic Name Dose Route Start Last Admin Trade Name Freq PRN Reason Stop Dose Admin Droperidol 1.25 mg 10/13/24 18:43 10/13/24 19:02 Droperidol 5 Mg/2 Ml Vial IVPUSH 10/13/24 18:44 1.25 mg ONCE ONE Administration Droperidol 1.25 mg 10/14/24 02:09 10/14/24 02:22 Droperidol 5 Mg/2 Ml Vial IVPUSH 10/14/24 02:10 1.25 mg ONCE ONE Administration Sodium Chloride 1,000 mls @ 999 mls/hr 10/13/24 18:45 10/13/24 21:33 Ns IV 10/13/24 19:45 Infused .Q1H1M KARINA Infusion Sodium Chloride 1,000 mls @ 999 mls/hr 10/14/24 02:00 10/14/24 04:10 Ns IV 10/14/24 03:00 Infused .Q1H1M [facility] Infusion Lorazepam 0.5 mg 10/13/24 18:43 10/13/24 19:01 Lorazepam 2 Mg/Ml Vial IVPUSH 10/13/24 18:44 Not Given ONCE ONE Ondansetron HCl 4 mg 10/13/24 15:05 10/13/24 15:10 Ondansetron Odt 4 Mg Tab.Rapdis TRANSLINGU 10/13/24 15:06 4 mg ONCE ONE Administration Ondansetron HCl 4 mg 10/14/24 00:50 10/14/24 02:25 Ondansetron Odt 4 Mg Tab.Rapdis TRANSLINGU 10/14/24 00:51 Not Given ONCE ONE Prochlorperazine Edisylate 10 mg 10/14/24 04:28 10/14/24 06:10 Prochlorperazine Edisylate 10 Mg/2 Ml Vial IVPUSH 10/14/24 04:29 10 mg ONCE ONE Administration Medical Decision Making Medical Decision Making MDM Narrative: Medical Decision Makin-year-old female with cyclic vomiting syndrome continued daily cannabis use home Phenergan and lorazepam without relief. Afebrile vitals reassuring but distressed and vomiting and retching. No bright red blood or coffee ground. No melena described. Abdomen is soft nontender. Leukocytosis 19 she has had this previously. This is probably nonspecific and secondary to stress/vomiting no focal abdominal tenderness whatsoever to suggest biliary, appendix or other acute surgical etiology Droperidol Ativan IV fluids with improvement. Attempt to transition to p.o. but patient continued to retch signed out at 02:00 for overnight physician to follow up with continued IV fluid resuscitation repeat blood chemistry and antiemetics. Preliminary Favored Differential Diagnosis: Cyclic vomiting syndrome, cannabis hyperemesis syndrome, dehydration, electrolyte derangement, stress, anxiety among additional considered etiologies Testing Interpreted Independently: Not Applicable Radiology or Lab testing Results Reviewed: Not Applicable Consults: Not Applicable Independent Historians/External Chart Reviews: Not Applicable Social Determinants of Health Impacting MDM/Planning: Not Applicable Lab Data 10/13/24 18:56 10/14/24 04:18 Labs: Lab Results 10/13/24 10/13/24 10/13/24 Range/Units 17:14 18:56 21:47 WBC 19.4 H (4.8-10.8) X10*3/uL RBC 4.22 (4.20-5.50) X10*6/uL Hgb 12.3 (12.0-16.0) g/dl Hct 35.9 L (37.0-47.0) % MCV 85.1 (80.0-98.0) fL MCH 29.1 (27.0-33.0) pg MCHC 34.3 (31.0-35.0) g/dl RDW 11.8 (11.0-16.0) % Plt Count 279 (160-400) X10*3/uL MPV 10.6 (9.4-12.3) fL Immature Gran % (Auto) 0.5 H (0.0-0.4) % Neut % (Auto) 91.5 H (45-73) % Lymph % (Auto) 4.2 L (20-40) % [place] % (Auto) 3.6 (2-11) % Eos % (Auto) 0.0 (0-4) % Baso % (Auto) 0.2 (0-2) % Lymph # (Auto) 0.8 L (1.2-4.9) X10*3/uL [place] # (Auto) 0.7 (0.1-1.2) X10*3/uL Eos # (Auto) 0.0 (0.0-0.4) X10*3/uL Baso # (Auto) 0.0 (0.0-0.2) X10*3/uL Abs Immat Gran (auto) 0.09 H (0.00-0.03) X10*3/uL Absolute Neuts (auto) 17.7 H (2.0-8.3) x10*3/uL Absolute Nucleated RBC 0.000 (0.0-0.012) X10*3/uL Nucleated RBC % (auto) 0.0 (0.0-0.2) /100WBC Smear Tech's Comments VERIFIED Sodium 146 H (135-145) mmol/L Potassium 3.8 (3.3-5.1) mmol/L Chloride 115 H (96-108) mmol/L Carbon Dioxide 18 L (22-29) mmol/L Anion Gap 17 (12-20) BUN 9 (9-16) mg/dL Creatinine 0.86 (0.5-1.4) mg/dL Estim Creat Clear Calc 85.7 Estimated GFR > 60 Random Glucose 136 H (60-115) mg/dL Calcium 9.6 D (8.4-10.2) mg/dL Magnesium 1.8 (1.6-2.6) mg/dL Total Bilirubin 0.9 (0.0-1.0) mg/dL AST 24 (5-31) U/L ALT 14 (0-31) U/L Alkaline Phosphatase 45 (39-117) U/L Total Protein 8.3 H (6.5-8.0) g/dL Albumin 5.4 H (3.5-5.0) g/dL Lipase 17 (8-78) U/L Beta HCG, Quant < 2 mIU/mL Influenza Type A (PCR) NEGATIVE (Negative) Influenza Type B (PCR) NEGATIVE (Negative) RSV RNA Qual (PCR) NEGATIVE (Negative) SARS-CoV-2 RNA (RT-PCR) NEGATIVE (Negative) 10/14/24 Range/Units 04:18 WBC (4.8-10.8) X10*3/uL RBC (4.20-5.50) X10*6/uL Hgb (12.0-16.0) g/dl Hct (37.0-47.0) % MCV (80.0-98.0) fL MCH (27.0-33.0) pg MCHC (31.0-35.0) g/dl RDW (11.0-16.0) % Plt Count (160-400) X10*3/uL MPV (9.4-12.3) fL Immature Gran % (Auto) (0.0-0.4) % Neut % (Auto) (45-73) % Lymph % (Auto) (20-40) % [place] % (Auto) (2-11) % Eos % (Auto) (0-4) % Baso % (Auto) (0-2) % Lymph # (Auto) (1.2-4.9) X10*3/uL [place] # (Auto) (0.1-1.2) X10*3/uL Eos # (Auto) (0.0-0.4) X10*3/uL Baso # (Auto) (0.0-0.2) X10*3/uL Abs Immat Gran (auto) (0.00-0.03) X10*3/uL Absolute Neuts (auto) (2.0-8.3) x10*3/uL Absolute Nucleated RBC (0.0-0.012) X10*3/uL Nucleated RBC % (auto) (0.0-0.2) /100WBC Smear Tech's Comments Sodium 146 H (135-145) mmol/L Potassium 4.0 (3.3-5.1) mmol/L Chloride 114 H (96-108) mmol/L Carbon Dioxide 18 L (22-29) mmol/L Anion Gap 18 (12-20) BUN 7 L (9-16) mg/dL Creatinine 0.72 (0.5-1.4) mg/dL Estim Creat Clear Calc 102.3 Estimated GFR > 60 Random Glucose 118 H (60-115) mg/dL Calcium 8.7 D (8.4-10.2) mg/dL Magnesium (1.6-2.6) mg/dL Total Bilirubin (0.0-1.0) mg/dL AST (5-31) U/L ALT (0-31) U/L Alkaline Phosphatase (39-117) U/L Total Protein (6.5-8.0) g/dL Albumin (3.5-5.0) g/dL Lipase (8-78) U/L Beta HCG, Quant mIU/mL Influenza Type A (PCR) (Negative) Influenza Type B (PCR) (Negative) RSV RNA Qual (PCR) (Negative) SARS-CoV-2 RNA (RT-PCR) (Negative) Discharge Plan Discharge Clinical Impression: Dehydration, Cyclical vomiting Patient Disposition: Home, Self-Care Instructions: Cannabis Use Disorder (ED), Cyclic Vomiting Syndrome (ED) Additional Instructions: DISCHARGE DIAGNOSES: Cyclic vomiting syndrome likely related to daily cannabis use and/or stress HISTORY OF PRESENTATION: ?Vomiting abdominal pain EMERGENCY DEPARTMENT COURSE,TESTS, TREATMENTS: While in the ED today you received multiple nausea medications and IV fluid. This included lorazepam, droperidol, ondansetron. You did vomit a few times in the emergency department but when we discussed potential discharged home you felt amenable to going home with Zofran. You do have lorazepam and Phenergan another nausea medicine. Do not use these in combination with ondansetron as it can have cardiac effects. DISCHARGE MEDICATIONS: Ondansetron not to be taken along with Phenergan. FOLLOW-UP: ?Call your primary or general physician soon as possible to discuss your symptoms, your ED visit and to discuss follow up plans Call PCP for follow up pursue Gastroenterology follow up in [place] INSTRUCTIONS ?& RETURN PRECAUTIONS: If any symptoms change first call your primary physician, if it is after-hours your primary doctors office should have a provider professor of special education you can speak with. If the symptoms are severe or very concerning to you then call 911 or return to the ED. Try to manage her stress. We strongly recommend cessation of marijuana smoking. THC can last in the blood for several weeks and so because the theoretical cause of your cyclic vomiting could be secondary to marijuana use a full cessation of at least 1 month to evaluate if this decreases the recurrence of your symptoms is warranted. Regan Funes MD Emergency Physician [facility] Prescriptions: No Action omeprazole 20 mg Capsule,Delayed Release(Dr/Ec) 20 mg PO DAILY@0630 Qty: 90 0RF ondansetron 4 mg tablet,disintegrating 4 mg PO NEEDED PRN (Reason: nausea and vomiting) Qty: 20 0RF Interventions: ED Discharge Assessment Last Done: 10/14/24 07:59 Discharge Date/Time: 10/14/24 08:30 Print Language: Colombian
[2024-10-13 18:00] LABS: Resp Syncy Virus RNA Qual PCR NEGATIVE (Negative); SARS COV2 PCR INHOUSE NEGATIVE (Negative)
--- OUTSIDE RECORDS SUMMARY | 2024-10-13 18:31 | XMS_ITS ---
Author Name [facility] Organization Unknown Results Test Name/Text Value Interpretation Date Range Source Sp Gr Ur Strip.auto >1.030 Above high normal 08/08/2023 1 .005 - 1.03 [facility] Nitrite Ur Ql Strip.auto NEGATIVE Normal 08/08/2023 - [facility] Ketones Ur Ql Strip.auto 40.0 mg/dL Abnormal 08/08/2023 - [facility] Prot Ur Ql Strip.auto NEGATIVE Normal 08/08/2023 - [facility] Hgb Ur Ql Strip.auto NEGATIVE Normal 08/08/2023 - [facility] pH Ur Strip.auto 5.5 Normal 08/08/2023 4.5 - 8 [facility] Leukocyte esterase Ur Ql Strip.auto NEGATIVE Normal 08/08/2023 - [facility] Clarity Ur Refract.auto HAZY Normal 08/08/2023 [facility] Glucose Ur Ql Strip.auto NEGATIVE Normal 08/08/2023 - [facility] SPECIMEN SOURCE XXX URINE CLEAN CATCH Normal 08/08/2023 [facility] Amphet Ur Ql Scn NEGATIVE Normal 08/08/2023 [facility] Barbiturates Ur Ql Scn NEGATIVE Normal 08/08/2023 - [facility] Cannabinoids Ur Ql Scn POSITIVE Abnormal 08/08/2023 - [facility] BILIRUB DIRECT SERPL MCNC 0.1 mg/dL Normal 08/08/2023 0 - 0.2 [facility] ALP SERPL-CCNC 38.0 U/L Normal 08/08/2023 34 - [facility] BCG [facility] 4.7 g/dL Normal 08/08/2023 3.5 - [facility]GLOB [facility] MRTO 1.6 Normal 08/08/2023 [facility] BILIRUB SERPL MCNC 0.6 mg/dL Normal 08/08/2023 0.3 - 1 [facility] PROT SERPL MCNC 7.7 g/dL Normal 08/08/2023 6.4 - 8.5 [facility] AST SERPL CCNC 18.0 U/L Normal 08/08/2023 5 - 40 [facility] ALT SERPL CCNC 8.0 U/L Normal 08/08/2023 7 - 52 [facility] AMYLASE SERPL CCNC 81.0 U/L Normal 08/08/2023 29 - 103 [facility] LYMPHOCYTES NO. BLD AUTO 1.3 K/uL Normal 08/08/2023 1 - 3.2 [facility] EOSINOPHIL NO. BLD AUTO 0.0 K/uL Normal 08/08/2023 0 - 0.5 [facility] BASOPHILS NFR BLD AUTO 0.3 % Normal 08/08/2023 0 - 2 [facility] IMMATURE GRANULOCYTE, ABSOLUTE 0.03 k/uL Normal 08/08/2023 - 0.1 [facility] NEUTROPHILS NFR BLD AUTO 87.3 % Above high normal 08/08/2023 44 - 74 [facility] MCV RBC AUTO 88.6 fL Normal 08/08/2023 78 - 100 [facility] IMMATURE GRANULOCYTE, PERCENT 0.2 % Normal 08/08/2023 0 - 1 [facility] MONOCYTES NFR BLD AUTO 3.0 % Normal 08/08/2023 2 - 12 [facility] NEUTROPHILS NO. BLD AUTO 12.7 K/uL Above high normal 08/08/2023 1.8 - 7.8 [facility] BASOPHILS IN BLOOD BY AUTOMATED COUNT 0.0 K/uL Normal 08/08/2023 0 - 0.2 [facility] RDW RBC AUTO RTO 11.9 % Below low normal 08/08/2023 12.1 - 16.2 [facility] HGB BLD MCNC 13.6 g/dL Normal 08/08/2023 12.5 - 16 [facility] H RBC NO. BLD AUTO 4.63 M/uL Normal 08/08/2023 4.2 - 5.4 [facility] MCH RBC QN AUTO 29.4 pg Normal 08/08/2023 25 - 33 [facility] WBC NO. BLD AUTO 14.6 K/uL Above high normal 08/08/2023 4 - 10.5 [facility] LYMPHOCYTES NFR BLD AUTO 9.1 % Below low normal 08/08/2023 20 - 48 [facility] PMV BLD AUTO 11.5 fL Above high normal 08/08/2023 7.4 - 11 .4 [facility] HCT VFR BLD AUTO 41.0 % Normal 08/08/2023 37 - 47 [facility] EOSINOPHIL NFR BLD AUTO 0.1 % Normal 08/08/2023 0 - 6 [facility] MONOCYTES NO. BLD AUTO 0.4 K/uL Normal 08/08/2023 0 - 0.8 [facility] MCHC RBC AUTO MCNC 33.2 g/dL Normal 08/08/2023 32 - 36 [facility] LIPASE SERPL CC[facility] 24.0 U/L Normal 08/08/2023 11 - 82 [facility] BUN SERPL MCNC 9.0 mg/dL Normal 08/08/2023 7 - 17 [facility] HCO3 SER SCNC 21.0 mmol/L Below low normal 08/08/2023 24 - 3 2 [facility] POTASSIUM SERPL SCNC 4.0 mmol/L Normal 08/08/2023 3.5 - 5 .1 [facility] Glomerular filtration rate/1.73 sq M. predicted 84.0 Normal 08/08/2023 60 - [facility] SODIUM SERPL SC[facility] 140.0 mmol/L Normal 08/08/2023 135 - 14 5 [facility] CREAT SERPL MCNC 0.9 mg/dL Normal 08/08/2023 0.5 - 1 [facility] CALCIUM SERPL MCNC 10.0 mg/dL Normal 08/08/2023 8.4 - 10. 2 [facility] CHLORIDE SERPL SCNC 106.0 mmol/L Normal 08/08/2023 98 - 1 07 [facility] GLUCOSE SERPL MCNC 133.0 mg/dL Normal 08/08/2023 70 - 199 [facility] ANION GAP SERPL SCNC 13.0 mmol/L Normal 08/08/2023 5 - 14 [facility] History of Medication Use Medication Directions Dispensed Refills Start Date End Date [facility] droperidol (INAPSINE) injection 1.25 mg 1.25 mg, Intravenous, Once, On Sun08/08/23 at 1400, For 1 dose 08/08/2023 4 completed ondansetron (ZOFRAN) injection 4 mg 05/09/2023 aborted promethazineTake 1 Tablet (oral) every 4 hours PRN - Nausea for 3 [id number] ry 4 [id number] 5mg 04/30/2023 active sodium chloride 0.9 %No directions recordedNo date recordedNo form recordedNo frequency recordedNo route recordedNo set duration recordedNo set duration amount recordedactiveNo dosage strength recordedNo dosage strength units of measure recorded active fenofibric acidTakeN o date recordedNo form recordedNo frequency recordedNo route recordedNo set duration recordedNo set duration amount recordedactiveNo dosage strength recordedNo dosage strength units of measure recorded active Wellbutrin SRTakeNo date recordedNo form recordedNo frequency recordedNo route recordedNo set duration recordedNo set duration amount recordedactiveNo dosage strength recordedNo dosage strength units of measure recorded active Problems Problem Status Onset Date Problem Type Date of Resolution Source Nausea with vomiting, unspecified active 2023-06-15 [address] [facility] Nausea and vomiting active EncounterDiagnosisAct [facility] Encounters Encounter Type Encounter Reason Primary Diagnosis Location Date Emergency Nausea with vomiting, unspecified Nausea with vomiting, unspecified [facility] 08/08/2023 Ambulatory [facility] 06/15/2023 Ambulatory Nausea with vomiting, unspecified Nausea with vomiting, unspecified [facility] 05/09/2023 Ambulatory [facility] 05/09/2023 Ambulatory [facility] 04/30/2023 Ambulatory [facility] 12/13/2022 Care Team Organization Name Specialty Phone Email Start Date End [facility] 08/13/2024 [facility] 08/08/2023 [facility] 08/08/2023 [facility] 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
--- OUTSIDE RECORDS SUMMARY | 2024-10-13 18:31 | XMS_ITS | Clinical Summary ---
Author Organization [facility] Address [address] [place] [address] Care Team Providers Care Brands Editor Name Role Phone Marychuy Zaragoza Primary Care Provider Unavailabl e Medications Valacyclovir HCl (VALTREX) 1 g tablet TAKE 1 TAB TWICE DAILY FOR 5 DAYS (USE PER CYCLE) 50 0 05/24/2018 Active LORazepam (ATIVAN) 1 MG tablet TAKE 1/2 TO 1 TAB DAILY NEEDED 30 0 01/10/2019 Active Active Problems Problem Noted Date Diagnosed Date Edema of both lower extremities 06/04/2019 Overview (05/06/2023): Impression - 04Jun2019: Swelling of bilat ankles with tr edema bilat shins for past 2 days, began about 1-2 days after she was d/c'd from hospital for vomitting and dehydration and she received more then 5L of IVF (pt states she weighed 5# more then she does today on d/c). Swelling is worse in the morning after she has been laying all night. She has had normal urination, denies SOB, GUERRERO, CP. Exam is benign except for tr edema of shins and mod non-pitting edema bilat ankles. I discussed this seems like 3rd spacing of fluids after she recieved large amount of IVF. I counselled that her body will remove the excess fluids from the space. Rec elevation of legs, frequent ambulation. She has lab slip from PCP for annual labs and she will have drawn tomorrow (will check electrolytes). F/u if worsening or if not resolved in 1 week. Ringworm, body 11/06/2018 Social History Tobacco Use Types Packs/Day Years Used Date Smoking Tobacco: Never Assessed Comments Unknown Sex and Gender Information Value Date Recorded Sex Assigned at Not on file Legal Sex Female 4:15 PM EDT Gender Identity Not on file Sexual Orientation Not on file Last Filed Vital Signs Vital Sign Reading Time Taken Comments Blood Pressure 100/63 06/04/2019 2:14 PM EST Pulse 57 06/04/2019 2:14 PM EST Temperature 36.7 C (98 F) 06/04/2019 2:14 PM EST Respiratory Rate 16 06/04/2019 2:14 PM EST Oxygen Saturation 100% 06/04/2019 2:14 PM EST Inhaled Oxygen Concentration - - Weight 59.9 kg (131 lb 15.8 oz) 06/04/2019 2:14 PM EST Height 165.1 cm (5' 5 ) 06/04/2019 2:14 PM EST Body Mass Index 21.96 06/04/2019 2:14 PM EST Plan of Treatment Health Maintenance Due Date Last Done Comments Hepatitis C Screening 1985 Pap Smear 2001 DTaP/Tdap/Td (1 - Tdap) 12/21/2003 Hep B (1 of 3 - 19+ 3-dose series) 2004 COVID-19 Vaccine ( - 2023-2 5 season) 2023 Influenza (#1) 2024 Zoster (Shingrix) (1 of 2) 12/21/2035 HPV Vaccine Aged Out No longer eligi ble based on patient's age to complete this topic Hep A Aged Out No longer eligi ble based on patient's age to complete this topic Hib Aged Out No longer eligi ble based on patient's age to complete this topic Meningococcal ACWY Aged Out No longer eligible based on patient's age to complete this topic Pneumococcal Aged Out No longer eligi ble based on patient's age to complete this topic Care Teams Brands Editor Relationship Specialty Start Date End Date Marychuy Zaragoza PCP - General 11/06/22
--- OUTSIDE RECORDS SUMMARY | 2024-10-13 18:31 | XMS_ITS | Clinical Summary ---
Author Organization [facility] Address [address] [place] [address] Care Team Providers Care Button Tufting Machine Operator Name Role Phone Unavailable Primary Care Provider Unavailabl e Allergies No known active allergies Medications No known medications Active Problems No known active problems Social History Tobacco Use Types Packs/Day Years Used Date Smoking Tobacco: Never Assessed Sex and Gender Information Value Date Recorded Sex Assigned at Female 08/08/2023 11:48 AM EDT Gender Identity Female 08/08/2023 11:48 AM EDT Sexual Orientation Not on file Job Start Date Occupation Industry Not on file Not on file Not on file Last Filed Vital Signs Vital Sign Reading Time Taken Comments Blood Pressure 120/93 08/08/2023 11:47 AM EDT Pulse 75 08/08/2023 11:47 AM EDT Temperature 36.7 C (98 F) 08/08/2023 11:47 AM EDT Respiratory Rate 18 08/08/2023 11:47 AM EDT Oxygen Saturation 100% 08/08/2023 11:47 AM EDT Inhaled Oxygen Concentration - - Weight 72.6 kg (160 lb) 08/08/2023 11:47 AM EDT Height 165.1 cm (5' 5 ) 08/08/2023 11:47 AM EDT Body Mass Index 26.63 08/08/2023 11:47 AM EDT Plan of Treatment Not on file
[2024-10-13 18:36] VITALS: BP 122/58; PULSE 73; RESP 18; TEMP 36.2; O2SAT 100
--- NOTE | 2024-10-13 18:43 | ECG_ITS ---
Test Reason : QT ASSESS Blood Pressure : */* mmHG Vent. Rate : 80 BPM Atrial Rate : 80 BPM P-R Int : 134 ms QRS Dur : 68 ms QT Int : 410 ms P-R-T Axes : 78 84 72 degrees QTcB Int : 472 ms Normal sinus rhythm with sinus arrhythmia Normal ECG When compared with ECG of 29-Oct-2023 10:11, T wave inversion no longer evident in Inferior leads Referred By: Regan Funes Electronically Signed By: IMELDA SKELTON
[2024-10-13 19:10] LABS: Hematocrit 35.9 % (37.0-47.0); Hemoglobin 12.3 g/dl (12.0-16.0); Imm Gran Abs Auto 0.09 X10*3/uL (0.00-0.03); Imm Gran Pct Auto 0.5 % (0.0-0.4); Lymphocytes Absolute Auto 0.8 X10*3/uL (1.2-4.9); MANUAL DIFF FLAG SCAN; Mean Corpuscular HGB Conc 34.3 g/dl (31.0-35.0); Mean Corpuscular Hemoglobin 29.1 pg (27.0-33.0); Mean Corpuscular Volume 85.1 fL (80.0-98.0); NRBC Abs Auto 0.000 X10*3/uL (0.0-0.012); NRBC Pct Auto 0.0 /100WBC (0.0-0.2); Platelet Count 279 X10*3/uL (160-400); Red Blood Count 4.22 X10*6/uL (4.20-5.50); SCAN SMEAR FLAG 1; White Blood Count 19.4 X10*3/uL (4.8-10.8)
[2024-10-13 20:42] VITALS: BP 125/72; PULSE 61; RESP 20; TEMP 37; O2SAT 100
[2024-10-13 22:12] LABS: Alanine Aminotransferase 14 U/L (0-31); Albumin Level 5.4 g/dL (3.5-5.0); Alkaline Phosphatase 45 U/L (39-117); Anion Gap 17 (12-20); Aspartate Amino Transferase 24 U/L (5-31); Blood Urea Nitrogen 9 mg/dL (9-16); Calcium 9.6 mg/dL (8.4-10.2); Carbon Dioxide 18 mmol/L (22-29); Chloride 115 mmol/L (96-108); Creatinine Clr Calc Pharmacy 85.7; Estimated Glomerular Filt Rate > 60; Lipase 17 U/L (8-78); Magnesium 1.8 mg/dL (1.6-2.6); Potassium 3.8 mmol/L (3.3-5.1); Sodium 146 mmol/L (135-145); Total Protein 8.3 g/dL (6.5-8.0)
--- NOTE | 2024-10-14 02:00 | MHC.EDTECH ---
Provider states to draw ordered BMP after more fluids is given.
[2024-10-14 04:39] LABS: Anion Gap 18 (12-20); Blood Urea Nitrogen 7 mg/dL (9-16); Calcium 8.7 mg/dL (8.4-10.2); Carbon Dioxide 18 mmol/L (22-29); Chloride 114 mmol/L (96-108); Creatinine Clr Calc Pharmacy 102.3; Estimated Glomerular Filt Rate > 60; Potassium 4.0 mmol/L (3.3-5.1); Sodium 146 mmol/L (135-145)
[2024-10-14 06:06] VITALS: BP 128/73; PULSE 55; RESP 14; TEMP 36.3; O2SAT 99
[2024-10-14 07:59] VITALS: BP 105/60; PULSE 86; RESP 17; TEMP 37.5; O2SAT 98
== END 2024-10-14 08:30 | disposition home or self-care (01) ==
PROVIDERS: Emergency Medicine; Physician Assistant Medical; Emergency Provider Emergency Medicine; PCP Physician Assistant
DX: R11.15 Cyclical vomiting syndrome unrelated to migraine (principal); E86.0 Dehydration; R11.2 Nausea with vomiting, unspecified; F12.90 Cannabis use, unspecified, uncomplicated; Z03.818 Encounter for observation for suspected exposure to other biological agents ruled out
CPT/HCPCS: 36415; 80048; 80053; 83690; 83735; 84702; 85025; 87637; 93005; 96361; 96374; 96375; 96376; 99285; J0737; J1790

== ENCOUNTER → 2024-10-13 18:43 | Outpatient (BNV) | payer OTHER, SELFPAY | PROVIDERS: Emergency Provider Emergency Medicine; PCP Physician Assistant; Visit Provider Internal Medicine | DX: I45.81 Long QT syndrome (principal) | CPT/HCPCS: 93010 ==